=== PATIENT | female | born 1930 | race Caucasian/White ===

== ENCOUNTER 2016-09-28 14:51 | Outpatient (CLI) | payer MEDICARE, OTHER | END 2016-09-28 14:52 | disposition home or self-care (01) | DX: Z12.31 Encounter for screening mammogram for malignant neoplasm of breast (principal) ==

== ENCOUNTER 2017-09-25 11:33 | Outpatient (CLI) | payer MEDICARE, OTHER ==
--- NOTE | 2017-09-26 13:17 | Mammography Report ---
DIGITAL SCREENING MAMMOGRAM: 09/25/2017 CLINICAL INDICATION: An 87-year-old with history of late childbearing, history of benign biopsy, family history of breast cancer for screening. COMPARISON: 08/2016, 08/2015, 08/2007, 08/2006. TECHNIQUE: Routine CC and MLO projections were obtained of the breasts. FINDINGS: The breasts demonstrate scattered fibroglandular densities bilaterally. Coarse, typically benign calcifications are present. Postoperative changes in the left breast are stable. No suspicious masses, clustered microcalcifications, or regions of architectural distortion are identified. IMPRESSION: BENIGN FINDINGS. RECOMMENDATION: Routine annual screening unless otherwise clinically indicated. BIRADS CATEGORY 2 - BENIGN FINDINGS. STANDARD QUALIFYING STATEMENTS: 1. This examination was reviewed with the aid of Computer-Aided Detection (CAD). 2. A negative or benign imaging report should not delay biopsy if clinically suspicious findings are present. Consider surgical consultation if warranted. More than 5% of cancers are not identified by imaging. 3. Dense breasts may obscure an underlying neoplasm. TD: 09/26/2017 13:17
== END 2017-09-25 11:34 | disposition home or self-care (01) ==
LOC: DI.S 11:33
PROVIDERS: ATTEND Internal Medicine
DX: Z12.31 Encounter for screening mammogram for malignant neoplasm of breast (principal)
CPT/HCPCS: 77067

== ENCOUNTER 2018-06-19 01:51 | Outpatient (CLI) | payer MEDICARE, OTHER | END 2018-06-19 01:52 | disposition critical access hospital (66) | LOC: EMS 01:51 | PROVIDERS: ATTEND Surgery | DX: R42 Dizziness and giddiness (principal); R11.2 Nausea with vomiting, unspecified; R47.81 Slurred speech; R29.810 Facial weakness | CPT/HCPCS: A0425; A0429 ==

== ENCOUNTER 2018-06-19 02:14 | Inpatient (IN) | payer MEDICARE, OTHER ==
[2018-06-19] MEDS ORDERED: ONDANSETRON 4 MG/2 ML VIAL ONE (02:27)
[2018-06-19] MEDS ORDERED: ONDANSETRON 4 MG/2 ML VIAL IVP STA (02:27)
--- NOTE | 2018-06-19 02:29 | ED Physician Documentation ---
PD HPI FOCAL NEURO - Stated complaint Stated Complaint: RIGHT SIDE FACIAL DROOP, RLE WEAKNESS - Chief complaint Chief Complaint: Neuro - History obtained from History obtained from: Patient, EMS - History of Present Illness Timing - onset: Unknown Timing - details: Abrupt onset Time of symptom onset unknown: Time of onset unknown Severity of deficit: Severe Weakness: Face, Leg, Right Numbness: No: Face, Arm, Hand, Leg, Foot, Right, Left Associated symptoms: Nausea / vomiting, Other (double vision). No: Headache Contributing factors: negative: Anticoagulated Baseline status: positive: A&OX3, ambulatory, indep Similar symptoms before: Has not had sx before Recently seen: Not recently seen - Additional information Additional information: 88-year-old female went to bed at about 9:30 PM after having her usual 4-5 whiskey drinks. She was awoken in the middle of the night she is uncertain exactly why but she noticed at that time that she was nauseous and dizzy. She noticed that she was having double vision and called 911 when medics arrived they found to have a right facial droop and transported to the hospital. The patient states that she was in her usual health has not felt ill and does not feel weakness on one side or the other. She denies any numbness. Review of Systems Constitutional: denies: Fever Eyes: reports: Other (double vision) Ears: denies: Ear pain Nose: denies: Rhinorrhea / runny nose, Congestion Throat: denies: Sore throat Cardiac: denies: Chest pain / pressure, Palpitations Respiratory: denies: Dyspnea, Cough GI: reports: Nausea, Vomiting. denies: Abdominal Pain : denies: Dysuria, Frequency Skin: denies: Rash Musculoskeletal: denies: Neck pain, Back pain, Extremity pain Neurologic: reports: Focal weakness, Difficulty speaking. denies: Generalized weakness, Numbness, Head injury, LOC PD PAST MEDICAL HISTORY - Past Surgical History Past Surgical History: Yes General: Bowel surgery /[employer]: Oophrectomy - Present Medications Home Medications: Ambulatory Orders Medication Instructions Recorded Confirmed cephALEXin [Keflex] 500 mg PO Q6H #19 capsule 03/01/14 No Known Home Medications 06/19/18 06/19/18 - Allergies Allergies/Adverse Reactions: Allergies Allergy/AdvReac Type Severity Reaction Status Date / Time No Known Drug Allergies Allergy Unverified 06/19/18 02:07 - Social History Does the pt smoke?: No Smoking Status: Never smoker Does the pt drink ETOH?: Yes Does the pt have substance abuse?: No - Immunizations Immunizations are current?: Yes PD ED PE NORMAL - Vitals Vital signs reviewed: Yes (hypertensive mild ) - General General: Well developed/nourished, Other (prefers to keep eyes closed ) - HEENT HEENT: Atraumatic, PERRL, EOMI, Moist mucous membranes, Other (There are 3 beats of nystagmus to the left and 4 to the right ) - Neck Neck: Supple, no meningeal sign, No bony TTP - Cardiac Cardiac: RRR, Other (2/6 holosystolic murmer at LSB high pitched consistent with aortic stenosis.) - Respiratory Respiratory: No respiratory distress, Clear bilaterally - Abdomen Abdomen: Soft, Non tender - Back Back: No CVA TTP, No spinal TTP - Derm Derm: Normal color, Warm and dry, No rash - Extremities Extremities: No deformity, No edema - Neuro Neuro: Alert and oriented X 3, No sensory deficit, Normal speech, Other (There is marked facial asymetry with a right facial droop. The forehead is densely involved. There is nystagmus bilaterally ) Eye Opening: To Voice Motor: Obeys Commands Verbal: Oriented GCS Score: 14 - Psych Psych: Normal mood, Normal affect NIHSS - Time Time: 02:20 - Level of Consciousness Level of consciousness: (0) Alert, Keenly responsive LOC Questions: (0) Answers both Q's correct LOC Commands: (0) Performs both correctly - Gaze Best Gaze: (1) Partial gaze palsy - Visual Visual: (0) No loss - Facial Palsy Facial Palsy: (3) Complete paralysis - Motor Arms (both separate) Motor Arm (right): (0) No drift Motor Arm (left): (0) No drift - Motor Legs (both separate) Motor Leg (right): (0) No drift Motor Leg (left): (0) No drift - Limb Ataxia Limb Ataxia: (0) Absent - Sensory Sensory: (0) Normal - Best Language Best Language: (0) No aphasia - Dysarthria Dysarthria: (0) Normal - Extinction and Inattention (formally neg Extinction and inattention: (0) No abnormality - Total Score/Results Total Score/Result: 4 Results - Vitals Vitals: Vital Signs - 24 hr 06/19/18 06/19/18 06/19/18 02:13 02:27 02:41 Temperature 36.5 C Heart Rate 81 88 81 Respiratory 20 22 17 Rate Blood Pressure 159/74 H 180/95 H 137/69 H O2 Saturation 94 92 85 L 06/19/18 06/19/18 06/19/18 02:55 03:22 04:14 Temperature Heart Rate 78 77 Respiratory 20 16 Rate Blood Pressure 127/69 143/74 H O2 Saturation 92 96 94 06/19/18 06/19/18 04:43 05:26 Temperature Heart Rate 81 84 Respiratory 17 18 Rate Blood Pressure 157/70 H 145/71 H O2 Saturation 92 94 Oxygen O2 Source Nasal cannula Oxygen Flow Rate 2 - EKG (time done) 0238 Rate: Rate (enter#) (82) Rhythm: NSR Ischemia: Normal ST segments Compare to prior EKG: Old EKG unavailable Computer interpretation: Agree with computer - Labs Labs: Laboratory Tests 06/19/18 06/19/18 06/19/18 02:20 02:20 02:20 WBC 4.5 L RBC 3.87 L Hgb 12.5 Hct 36.1 L MCV 93.4 MCH 32.3 H MCHC 34.6 RDW 13.7 Plt Count 189 MPV 8.3 Neut # (Auto) 2.6 Lymph # (Auto) 1.5 [place]re # (Auto) 0.3 Eos # (Auto) 0.1 Baso # (Auto) 0.0 Absolute Nucleated RBC 0.00 Nucleated RBC % 0.1 Sodium 139 Potassium 3.7 Chloride 103 Carbon Dioxide 25 Anion Gap 11.0 BUN 18 Creatinine 0.8 Estimated GFR (MDRD) 68 L Glucose 144 H Calcium 8.8 Total Bilirubin 0.6 AST 22 ALT 16 Alkaline Phosphatase 79 Troponin I < 0.04 Total Protein 6.8 Albumin 3.7 Globulin 3.1 Albumin/Globulin Ratio 1.2 Lipase 119 H Urine Color Urine Clarity Urine pH Ur Specific Evans Urine Protein Urine Glucose (UA) Urine Ketones Urine Occult Blood Urine Nitrite Urine Bilirubin Urine Urobilinogen Ur Leukocyte Esterase Ur Microscopic Review Urine Culture Comments Ethyl Alcohol 06/19/18 06/19/18 02:20 03:31 WBC RBC Hgb Hct MCV MCH MCHC RDW Plt Count MPV Neut # (Auto) Lymph # (Auto) [place] # (Auto) Eos # (Auto) Baso # (Auto) Absolute Nucleated RBC Nucleated RBC % Sodium Potassium Chloride Carbon Dioxide Anion Gap BUN Creatinine Estimated GFR (MDRD) Glucose Calcium Total Bilirubin AST ALT Alkaline Phosphatase Troponin I Total Protein Albumin Globulin Albumin/Globulin Ratio Lipase Urine Color YELLOW Urine Clarity CLEAR Urine pH 6.5 Ur Specific Evans 1.010 Urine Protein NEGATIVE Urine Glucose (UA) NEGATIVE Urine Ketones NEGATIVE Urine Occult Blood NEGATIVE Urine Nitrite NEGATIVE Urine Bilirubin NEGATIVE Urine Urobilinogen 0.2 (NORMAL) Ur Leukocyte Esterase NEGATIVE Ur Microscopic Review NOT INDICATED Urine Culture Comments NOT INDICATED Ethyl Alcohol 63.0 - Rads (name of study) CT head without Radiology: Prelim report reviewed (Impression: Generalized age-related cortical atrophic changes without evidence of acute intracranial abnormality.), EMP read indepedently, See rad report Procedures - IVC sono (time) 0302 Bedside IVC sono: IVC measures (cm) (1.01), IVC collapsed c insp (cm) (complete), Dehydration (est 1 liter deficit) PD MEDICAL DECISION MAKING - ED course Complexity details: reviewed old records, reviewed results, re-evaluated patient, considered differential, d/w patient ED course: 88-year-old female presents to the emergency department this morning with acute vertical diplopia and ataxia. She has had some vomiting associated with this and has developed a right facial droop. Right facial droop does appear to be a Garcia's palsy and does not fit with the diagnosis of Wernicke's encephalopathy. I suspect her vertical diplopia and ataxia are a result of Wernicke's encephalopathy. Here in the emerge department she is administered a banana bag intravenously as well as dexamethasone and meclizine. She has some improvement in her general affect but continues to have diplopia. She will require intravenous thiamine for 2-3 days and her hospitalist is consulted in the case and graciously agrees to admit the patient to the hospital. Departure - Departure Disposition: 66 [facility] DC/Xfer Clinical Impression: Wernicke encephalopathy, Right-sided Garcia's palsy Condition: Stable
[2018-06-19 02:36] LABS: BASOPHILS % (AUTO) 0.7 %; EOSINOPHILS # (AUTO) 0.1 10^3/uL (0.0-0.7); HGB - HEMOGLOBIN 12.5 g/dL (12.0-16.0); LYMPHOCYTES # (AUTO) 1.5 10^3/uL (1.5-3.5); LYMPHOCYTES % (AUTO) 32.9 %; MEAN CORPUSCULAR HEMOGLOBIN 32.3 pg (27.0-31.0); MEAN CORPUSCULAR HGB CONC 34.6 g/dL (32.0-36.0); MEAN CORPUSCULAR VOLUME 93.4 fL (81.0-99.0); MEAN PLATELET VOLUME 8.3 fL (7.9-10.8); MONOCYTES # (AUTO) 0.3 10^3/uL (0.0-1.0); NEUTROPHILS # (AUTO) 2.6 10^3/uL (1.5-6.6); NEUTROPHILS % (AUTO) 57.4 %; PLT - PLATELET COUNT 189 10^3/uL (130-450); RED BLOOD COUNT 3.87 10^6/uL (4.20-5.40); RED CELL DISTRIBUTION WIDTH 13.7 % (12.0-15.0); WHITE BLOOD COUNT 4.5 x10^3/uL (4.8-10.8)
[2018-06-19 02:49] LABS: CREATININE 0.8 mg/dL (0.4-1.0)
[2018-06-19 02:50] LABS: ALBUMIN 3.7 g/dL (3.2-5.5); ALBUMIN/GLOBULIN RATIO 1.2 (1.0-2.2); BILIRUBIN,TOTAL 0.6 mg/dL (0.2-1.0); CALCIUM 8.8 mg/dL (8.5-10.3); TOTAL PROTEIN 6.8 g/dL (6.7-8.2)
--- NOTE | 2018-06-19 02:52 | CT Report ---
Reason: right facial droop, vomiting double vision Procedure Date: 06/19/2018 Accession Number: [id number] / [id number] Procedure: CT - Head W/O Stroke Protocol CPT Code: FULL RESULT: EXAM: CT HEAD EXAM DATE: 06/19/2018. CLINICAL HISTORY: Right facial droop, vomiting double vision. COMPARISON: Brain MRI 05/02/2007. TECHNIQUE: Multiaxial CT images were obtained from the foramen magnum to the vertex. Reformats: Sagittal and coronal. IV contrast: None. In accordance with CT protocol optimization, one or more of the following dose reduction techniques were utilized for this exam: automated exposure control, adjustment of mA and/or KV based on patient size, or use of iterative reconstructive technique. FINDINGS: Parenchyma: No intraparenchymal hemorrhage. No evidence of mass, midline shift, or CT findings of acute infarction. Juan-white differentiation is distinct. Diffuse chronic microangiopathic white matter changes are evident. Extraaxial Spaces: Normal for age. No subdural or epidural collections identified. Ventricles: The ventricles and cortical sulci are enlarged, consistent with age-related tissue loss. Sinuses and orbits: Imaged paranasal sinuses, orbits, and mastoids show no significant abnormality. Bones: No evidence of fracture or calvarial defect. Other: None. IMPRESSION: Generalized age-related cortical atrophic changes without evidence of acute intracranial abnormality. RADIA The above findings were discussed with Dr. Obrien by Dr. Vidal Burr at 02:50 hrs on 06/19/18.
[2018-06-19] MEDS ORDERED: MECLIZINE 12.5 MG TABLET PO STA (03:05)
[2018-06-19] MEDS ORDERED: DEXAMETHASONE 10 MG/ML VIAL IVP STA (03:06)
[2018-06-19 03:38] LABS: BILIRUBIN,URINE NEGATIVE (NEGATIVE); GLUCOSE, URINE (UA) NEGATIVE (NEGATIVE); KETONES,URINE (UA) NEGATIVE (NEGATIVE); LEUKOCYTE ESTERASE, URINE NEGATIVE (NEGATIVE); NITRITE,URINE NEGATIVE (NEGATIVE); OCCULT BLOOD,URINE NEGATIVE (NEGATIVE); PH,URINE 6.5 PH (5.0-7.5); PROTEIN,URINE NEGATIVE (NEGATIVE); UROBILINOGEN,URINE 0.2 (NORMAL) E.U./dL (NORMAL)
[2018-06-19 03:42] LABS: CLARITY,URINE CLEAR (CLEAR)
[2018-06-19] MEDS ORDERED: MAGNESIUM SULFATE 1 GM/2 ML VIAL ONE (03:45)
[2018-06-19] MEDS ORDERED: THIAMINE 100 MG/1 ML 2 ML MDV ONE (03:45)
[2018-06-19] MEDS ORDERED: MULTIVITAMIN 10 ML, FOLIC ACID INJ 1 MG, THIAMINE INJ 100 MG, MAGNESIUM SULFATE 2 GM in... IV SCH ×10 (04:00→09:00)
[2018-06-19] MEDS ORDERED: SODIUM CHLORIDE FLUSH 0.9% 10 ML SYRINGE IVP PRN (06:59)
--- NOTE | 2018-06-19 07:55 | HISTORY & PHYSICAL EXAMINATION ---
Chief Complaint - Chief Complaint Chief Complaint: Dizziness, facial droop History of Present Illness - Admitted From Admitted From:: Emergency department - History Obtained From Records Reviewed: Yes History obtained from: Patient Exam Limitations: Patient has a right facial droop and is unable to ambulate due to severe ve - History of Present Illness HPI Comment/Other: Patient is a very pleasant 88-year-old female with a past medical history of hypertension not on any medications, diverticulitis and history of vasectomy for a benign cyst, partial colectomy for a benign polyp and salpingo-oophorectomy who presented to the emergency department with a chief complaint of dizziness and facial droop. The patient states that she was in her normal state of health yesterday and was at her neighbor's home celebrating his birthday. She states that she did have 5 cocktails last night with whiskey but she states that this is her norm. She states that she went to bed around 9 PM yesterday and felt fine. She states that at 2 AM all of a sudden she woke from her sleep and felt as though the room was spinning around her. She states that she felt extremely nauseous and had multiple episodes of emesis. She states that she tried to lie in her bed for about 4-5 minutes to let things settle down and then tried to get up. She states that she could not get up. She states that she had double vision. Then noticed that she had a right facial droop. She called 911 and paramedics arrived at the scene. The patient otherwise denies any fevers, chills, ringing in her ear, congestion, recent illness, dysuria, abdominal pain, diarrhea, changes in her appetite, weight loss or night sweats. The patient does state that she has decreased sensation on the left side of her mouth when she was trying to eat. On presentation to the emergency department the patient was afebrile with a normal heart rate but was hypertensive with blood pressure of 180/95 and not in any respiratory distress. The patient underwent routine lab work which revealed mildly elevated glucose of 144 otherwise she had a negative troponin and normal electrolytes. The patient's UA was negative her blood alcohol level was 63. The patient did not have a leukocytosis. The patient was found to have a right facial droop and horizontal and vertical nystagmus on her examination. The patient did undergo a CT of her head which revealed generalized age-related cortical atrophic changes without evidence of acute intracranial abnormality. The patient was placed in the observation unit for further neurologic workup for a presumed stroke. History - Past Medical History Cardiovascular: reports: Hypertension Respiratory: reports: None Neuro: reports: None Endocrine/Autoimmune: reports: None GI: reports: Colon polyps FOWL BLOOD TESTER: reports: Ovarian cysts : reports: None HEENT: reports: None Psych: reports: None Musculoskeletal: reports: None Derm: reports: None - Past Surgical History General: reports: Bowel surgery /FOWL BLOOD TESTER: reports: Oophrectomy - Family & Social History Family History: Sister: Cancer (Breast cancer), CVA/TIA, Brother: CAD Living arrangement: At home Living Situation: Alone Social History Notes: The patient lives at home in [place]. She is completely independent and lives alone. She has 4 children 1 of her sons lives on [facility] and works as a physical therapist. She is x2. She has never smoked, she does drink 4-5 cocktails of whiskey a night. She denies any illicit drug use. - POLST Patient has POLST: No POLST Status: DNR Meds/Allgy - Home Medications Home Medications: Ambulatory Orders Medication Instructions Recorded Confirmed No Known Home Medications 06/19/18 06/19/18 - Allergies Allergies/Adverse Reactions: Allergies Allergy/AdvReac Type Severity Reaction Status Date / Time No Known Drug Allergies Allergy Unverified 06/19/18 02:07 Review of Systems - Other Findings Other Findings: A comprehensive review of systems was performed the pertinent positives and negatives are stated above in the HPI and the remainder of the review of systems is negative. Prior Level of Functionality: Prior to hospitalization the patient is completely independent with all her activities of daily living. She is still very active and social. Exam - Vital Signs Vital Signs: Vital Signs x48h Temp Pulse Resp BP Pulse Ox 06/19/18 06:32 87 17 146/76 H 92 06/19/18 05:56 36.4 C L 87 22 148/75 H 93 06/19/18 05:26 84 18 145/71 H 94 06/19/18 04:43 81 17 157/70 H 92 06/19/18 04:14 77 16 143/74 H 94 06/19/18 03:22 78 20 127/69 96 06/19/18 02:55 92 06/19/18 02:41 81 17 137/69 H 85 L 06/19/18 02:27 88 22 180/95 H 92 06/19/18 02:13 36.5 C 81 20 159/74 H 94 - Physical Exam General Appearance: positive: Alert, Moderate distress (COvering her eyes secondary to vertigo and diplopia) Eyes Bilateral: positive: Normal inspection, PERRL, EOMI, No lid inflammation, Conjunctivae nml, No scleral icterus, Other (Vertical and horizontal nystagmus) ENT: positive: ENT inspection nml, Pharynx nml, No signs of dehydration. negative: Purulent nasal drainage, Pharyngeal erythema, Oral lesions Neck: positive: Nml inspection, Thyroid nml, No JVD, Trachea midline. negative: Thyromegaly, Lymphadenopathy (R), Lymphadenopathy (L), Stiff neck, Carotid bruit, Tracheal deviation Respiratory: positive: Chest non-tender, No respiratory distress, Breath sounds nml. negative: Wheezes, Rales, Rhonchi Cardiovascular: positive: Regular rate & rhythm, No gallop, Systolic murmur Peripheral Pulses: positive: 2+ Abdomen: positive: Non-tender, No organomegaly, Nml bowel sounds, No distention. negative: Guarding, Rebound, Hepatomegaly Back: positive: Nml inspection. negative: CVA tenderness (R), CVA tenderness (L) Skin: positive: Color nml, No rash, Warm. negative: Cyanosis, Diaphoresis, Pallor Extremities: positive: Non-tender, Full ROM, Nml appearance, No pedal edema Neurologic/Psychiatric: positive: Oriented x3, Sensory loss (Left face), Facial droop (Right), Other (Vertical and horizontal nystagmus. Broad based gate. Vertigo. Diplopia.) Conclusion/Plan - Problem List (1) CVA (cerebral vascular accident) Conclusion/Plan: The patient presented with low, diplopia, right facial droop and decreased sensation in the left side of her face. She had no other focal neurologic deficits. Patient's MRI revealed acute infarct in the right posterolateral pontomedullary junction. CT angiogram of the head and neck does not show any large thrombus or severe stenosis. Therefore there is no need for any acute intervention. 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 The patient does have a systolic murmur. She does not have any history of syncope, shortness of breath or congestive heart failure. Currently she seems to have minimal symptoms from her aortic stenosis is unlikely that her neurologic symptoms are related to her aortic stenosis. Plan: We will make sure the patient is adequately hydrated and does not become hypotensive. Patient will need outpatient workup for her aortic stenosis will await final reading of the echocardiogram. (3) Hypertension Conclusion/Plan: Patient has a history of hypertension but is not on any antihypertensive medications. The patient's blood pressure was elevated on presentation to the emergency department. For now we will allow for permissive hypertension secondary to her having had a acute infarct. Qualifiers: Hypertension type: essential hypertension Qualified Code(s): I10 - Essential (primary) hypertension (4) Hyperglycemia Conclusion/Plan: On presentation the patient's blood glucose is elevated at 144. She does not henderson ve a history of diabetes. We will check a hemoglobin A1c. We will monitor the blood glucose daily. - Lab Results Lab results reviewed: Yes Fish Bones: 06/19/18 02:20 06/19/18 02:20 Other Lab Results: Laboratory Results WBC 4.5 x10^3/uL (4.8-10.8) L 06/19/18 02:20 RBC 3.87 10^6/uL (4.20-5.40) L 06/19/18 02:20 Hgb 12.5 g/dL (12.0-16.0) 06/19/18 02:20 Hct 36.1 % (37.0-47.0) L 06/19/18 02:20 MCV 93.4 fL (81.0-99.0) 06/19/18 02:20 MCH 32.3 pg (27.0-31.0) H 06/19/18 02:20 MCHC 34.6 g/dL (32.0-36.0) 06/19/18 02:20 RDW 13.7 % (12.0-15.0) 06/19/18 02:20 Plt Count 189 10^3/uL (130-450) 06/19/18 02:20 MPV 8.3 fL (7.9-10.8) 06/19/18 02:20 Neut # (Auto) 2.6 10^3/uL (1.5-6.6) 06/19/18 02:20 Lymph # (Auto) 1.5 10^3/uL (1.5-3.5) 06/19/18 02:20 Titus # (Auto) 0.3 10^3/uL (0.0-1.0) 06/19/18 02:20 Eos # (Auto) 0.1 10^3/uL (0.0-0.7) 06/19/18 02:20 Baso # (Auto) 0.0 10^3/uL (0.0-0.1) 06/19/18 02:20 Absolute Nucleated RBC 0.00 x10^3/uL 06/19/18 02:20 Nucleated RBC % 0.1 /100WBC 06/19/18 02:20 Sodium 139 mmol/L (135-145) 06/19/18 02:20 Potassium 3.7 mmol/L (3.5-5.0) 06/19/18 02:20 Chloride 103 mmol/L (101-111) 06/19/18 02:20 Carbon Dioxide 25 mmol/L (21-32) 06/19/18 02:20 Anion Gap 11.0 (6-13) 06/19/18 02:20 BUN 18 mg/dL (6-20) 06/19/18 02:20 Creatinine 0.8 mg/dL (0.4-1.0) 06/19/18 02:20 Estimated GFR (MDRD) 68 (>89) L 06/19/18 02:20 Glucose 144 mg/dL (70-100) H 06/19/18 02:20 Calcium 8.8 mg/dL (8.5-10.3) 06/19/18 02:20 Total Bilirubin 0.6 mg/dL (0.2-1.0) 06/19/18 02:20 AST 22 IU/L (10-42) 06/19/18 02:20 ALT 16 IU/L (10-60) 06/19/18 02:20 Alkaline Phosphatase 79 IU/L (42-121) 06/19/18 02:20 Troponin I < 0.04 ng/mL (<0.49) 06/19/18 02:20 Total Protein 6.8 g/dL (6.7-8.2) 06/19/18 02:20 Albumin 3.7 g/dL (3.2-5.5) 06/19/18 02:20 Globulin 3.1 g/dL (2.1-4.2) 06/19/18 02:20 Albumin/Globulin Ratio 1.2 (1.0-2.2) 06/19/18 02:20 Lipase 119 U/L (22-51) H 06/19/18 02:20 Urine Color YELLOW 06/19/18 03:31 Urine Clarity CLEAR (CLEAR) 06/19/18 03:31 Urine pH 6.5 PH (5.0-7.5) 06/19/18 03:31 Ur Specific [place] 1.010 (1.002-1.030) 06/19/18 03:31 Urine Protein NEGATIVE mg/dL (NEGATIVE) 06/19/18 03:31 Urine Glucose (UA) NEGATIVE mg/dL (NEGATIVE) 06/19/18 03:31 Urine Ketones NEGATIVE mg/dL (NEGATIVE) 06/19/18 03:31 Urine Occult Blood NEGATIVE (NEGATIVE) 06/19/18 03:31 Urine Nitrite NEGATIVE (NEGATIVE) 06/19/18 03:31 Urine Bilirubin NEGATIVE (NEGATIVE) 06/19/18 03:31 Urine Urobilinogen 0.2 (NORMAL) E.U./dL (NORMAL) 06/19/18 03:31 Ur Leukocyte Esterase NEGATIVE (NEGATIVE) 06/19/18 03:31 Ur Microscopic Review NOT INDICATED 06/19/18 03:31 Urine Culture Comments NOT INDICATED 06/19/18 03:31 Ethyl Alcohol 63.0 mg/dL 06/19/18 02:20 - Diagnostic Imaging Results Diagnostic Imaging Results: positive: Final report reviewed Diagnostic Imaging Results Comments: CT head Impression: Generalized age-related cortical atrophic changes without evidence of acute intracranial abnormality MRI brain Impression: 1. Acute infarct in the right posterolateral pontomedullary junction. 2. Moderate white matter T2/FLAIR bright signal seen in the cerebral hemispheres bilaterally and right periventricular cerebellum. This is nonspecific. This can be seen secondary to small vessel ischemic change. 3. Several scattered punctuate foci of petechial microhemorrhage noted in the deep nuclear region. This may be secondary to hypertension. No parenchymal hematoma. CTA head and neck Impression: 1. Mild scattered atherosclerotic change involving extracranial cerebral circulation in the thoracic inlet and neck. 2. Mild atherosclerotic calcification is seen in the CCA bifurcation bilaterally. No significant stenosis. Bilateral carotid arteries are patent. 3. Bilateral vertebral arteries are patent. Moderate stenosis secondary to extrinsic compression from degenerative change of the cervical spine is seen in the proximal V2 segment of the right vertebral artery. Mild atherosclerotic calcification is seen in the V3 segment of the left vertebral artery. No significant stenosis. 4. Anterior circulation is patent. Moderate vascular calcification is seen involving cavernous and proximal supracavernous ICA. No significant stenosis. 5. Right vertebral artery is patent. 6. The left vertebral artery demonstrates moderate to severe stenosis in the proximal V4 segment. Patent distal to this. The left Pic[place] is dominant arising from the mid V4 segment. 7. The basilar artery and bifurcation is patent. Echocardiogram Impression: Mild concentric left ventricular hypertrophy. Overall left ventricular systolic function is normal with an ejection fraction of 60-65%. Diastolic function is indeterminate. No regional wall motion abnormalities are seen. Moderate right ventricular enlargement. Severe increase in left atrial volume index. The right atrial size is normal. The aortic valve is trileaflet. The aortic valve leaflets are severely calcified. Severe aortic stenosis with peak/mean pressure gradient of 76 mm / 54 mmHg, the aortic valve area by continuity equation is 0.44 cm. There is tra cemild aortic regurgitation. There is thickening of the mitral valve leaflets. No mitral stenosis noted. Moderate mitral annular calcification. There is mild to moderate mitral regurgitation. The tricuspid valve appears structurally normal. No tricuspid stenosis noted. Moderate tricuspid regurgitation. Severely abnormal right heart pressures. The right ventricular systolic pressure at rest is 70 mmHg. No mass or thrombus identified. - EKG Results EKG Interpreted Independently: Yes EKG Findings: Sinus rhythm. Core Measures - Anticipated LOS I expect patient to be DC'd or transferred within 96 hours.: Yes - DVT/VTE - Prophylaxis VTE/DVT Device ordered at admit?: Yes
[2018-06-19] MEDS ORDERED: IOVERSOL 320 100 ML VIAL IVP ONE ×2 (07:56→08:27)
[2018-06-19] MEDS ORDERED: MULTIVITAMIN 10 ML, FOLIC ACID INJ 1 MG, THIAMINE INJ 100 MG, MAGNESIUM SULFATE 2 GM in... IV STA ×5 (08:23)
[2018-06-19] MEDS ORDERED: PANTOPRAZOLE 40 MG VIAL IVP SCH (09:00)
[2018-06-19] MEDS ORDERED: D5NS W/20 MEQ KCL 1,000 ML IV SCH (09:00)
[2018-06-19] MEDS ORDERED: predniSONE 20 MG TABLET PO SCH (10:00)
[2018-06-19] MEDS ORDERED: valACYclovir 500 MG TABLET PO SCH (10:00)
--- NOTE | 2018-06-19 10:05 | CT Report ---
Reason: Facial droop, ataxia Procedure Date: 06/19/2018 Accession Number: [id number] / [id number] Procedure: CT - Head Angio CPT Code: FULL RESULT: EXAM: CT ANGIOGRAM HEAD AND NECK. CT SCAN HEAD WITH CONTRAST. EXAM DATE:06/19/2018 08:25 AM. CLINICAL HISTORY:Facial droop, ataxia. Clinical history from prior study includes: Right facial droop, vomiting, double vision. COMPARISON:CT scan of the head without contrast 06/19/2018 at 0221 hours. TECHNIQUE: Routine axial helical CTA imaging was performed from the aortic arch through the [place] of [place]. Routine axial CT imaging of the head was performed following contrast administration. Reconstructions: Routine multiplanar 3D MIP reconstructions. IV contrast: OPTI 320 80 mL. NASCET Criteria are used for stenosis measurements. In accordance with CT protocol optimization, one or more of the following dose reduction techniques were utilized for this exam: automated exposure control, adjustment of mA and/or KV based on patient size, or use of iterative reconstructive technique. FINDINGS: CT SCAN HEAD POSTCONTRAST: Parenchyma: No intraparenchymal hemorrhage. No evidence of mass, midline shift, or CT findings of acute infarction. Juan-white differentiation is distinct. Moderate patchy white matter hypodensity is noted throughout the cerebral hemispheres. No abnormal enhancement. Extraaxial Spaces: Normal for age. No subdural or epidural collections identified. Ventricles: Age-related prominence to the ventricular system is seen. No hydrocephalus. Sinuses and Orbits: Imaged paranasal sinuses, orbits, and mastoids show no significant abnormality. Bones: No evidence of fracture or calvarial defect. Moderate degenerative change is seen at the left TMJ. Hypertrophy of the mandibular condyle is evident. Other: Moderate vascular calcification is seen involving intracranial ICA. Mild vascular calcification is seen in the proximal intracranial vertebral arteries. CT ANGIOGRAM EXTRACRANIAL CIRCULATION: Mild tortuosity with moderate atherosclerotic calcification is seen in the aortic arch and great vessels off the arch. Normal three-vessel branching is evident. Great vessels are patent and unremarkable. Right Carotid: The common carotid, internal carotid, and external carotid arteries are widely patent. No dissection. Mild atherosclerotic calcification is seen at the CCA bifurcation and proximal ICA. No significant stenosis. Left Carotid: The common carotid, internal carotid, and external carotid arteries are widely patent. No dissection. Mild atherosclerotic calcification is seen at the CCA bifurcation and proximal ICA. No significant stenosis. Vertebrals: The vertebral arteries are codominant. The vertebral arteries are patent. Right vertebral artery: Extrinsic compression secondary to cervical spondylosis is seen in the proximal V2 segment at the C5-C6 level. Moderate, 50%, stenosis is seen. No dissection. Left vertebral artery: Mild atherosclerotic calcification is seen in the V3 segment. No significant stenosis. No dissection. CT ANGIOGRAM INTRACRANIAL CIRCULATION: Anterior circulation: Moderate atherosclerotic calcification is seen in the cavernous and proximal supracavernous ICA. No significant stenosis. No aneurysm. Bilateral VERA and MCA are patent and unremarkable. Posterior circulation: Mild atherosclerotic calcification is seen in the proximal V4 segment of the right vertebral artery. No significant stenosis. Moderate atherosclerotic calcification is seen in the proximal V4 segment of the left vertebral artery. Focal severe, 65-70%, stenosis is seen. The left PICA is dominant arising from the mid V4 segment. Minimal luminal irregularity is seen in the proximal basilar artery without significant stenosis. There are 2 right-sided AICAs present which are patent and unremarkable. Bilateral superior cerebellar arteries and POLITICAL RESEARCH SCIENTIST are patent and unremarkable. No significant stenosis. No aneurysm. The dural venous sinuses are patent. The right transverse sinus and jugular bulb are dominant. Other: Coarsened interstitial prominence is noted throughout the visualized upper lung zones. No consolidation. The visualized muscle and fascial planes of the neck are unremarkable. Mild kyphosis of the cervical spine is noted. Scattered cervical spondylosis is noted. C2-C3: Moderate right-sided degenerative facet change. Bilateral facet fusion. C3-C4: Moderate left-sided hypertrophic degenerative facet change. Mild left-sided degenerative uncovertebral change. C4-C5: Moderate bilateral degenerative facet change. Mild spondylolisthesis. C5-C6: Moderate degenerative disk and uncovertebral change. Right foraminal stenosis. C6-C7: Mild degenerative disk and uncovertebral change. IMPRESSION: CT SCAN HEAD POSTCONTRAST: 1. No acute intracranial abnormality. No abnormal enhancement. 2. Moderate white matter hypodensity is seen throughout the cerebral hemispheres. This is nonspecific. This can be seen secondary to small vessel ischemic change. CT ANGIOGRAM NECK: 1. Mild scattered atherosclerotic change involving extracranial cerebral circulation in the thoracic inlet and neck. 2. Mild atherosclerotic calcification is seen at the CCA bifurcation bilaterally. No significant stenosis. Bilateral carotid arteries are patent. 3. Bilateral vertebral arteries are patent. -Moderate stenosis secondary to extrinsic compression from degenerative change of the cervical spine is seen in the proximal V2 segment of the right vertebral artery. -Mild atherosclerotic calcification is seen in the V3 segment of the left vertebral artery. No significant stenosis. CT ANGIOGRAM HEAD: 1. Anterior circulation is patent. Moderate vascular calcification is seen involving cavernous and proximal supracavernous ICA. No significant stenosis. 2. The right vertebral artery is patent. 3. The left vertebral artery demonstrates moderate to severe stenosis in the proximal V4 segment. Patent distal to this. The left PICA is dominant arising from the mid V4 segment. 4. The basilar artery and bifurcation is patent. [facility]
[2018-06-19] MEDS: SODIUM CHLORIDE FLUSH 0.9% 10 ML SYRINGE IVP SCH ×2 (10:53→18:13)
[2018-06-19] MEDS: POLYETHYLENE GLYCOL 3350 17 GM PACKET PO SCH (10:54)
[2018-06-19] MEDS: MECLIZINE 12.5 MG TABLET PO PRN ×2 (10:54→18:13)
--- NOTE | 2018-06-19 11:01 | MRI Report ---
Reason: Facial droop, ataxia Procedure Date: 06/19/2018 Accession Number: [id number] / [id number] Procedure: MRI - Brain W/O CPT Code: FULL RESULT: EXAM: MRI BRAIN WITHOUT CONTRAST EXAM DATE: 06/19/2018 10:03 AM. CLINICAL HISTORY: Facial droop, ataxia. COMPARISON: HEAD W/O STROKE PROTOCOL 06/19/2018 2:21 AM. HEAD ANGIO 06/19/2018 8:00 AM. TECHNIQUE: Multiplanar, multisequence T1-weighted and fluid-sensitive MR sequences of the brain were performed. Sequences optimized for routine evaluation. Other: None. IV Contrast: None. FINDINGS: Brain Volume: Age-related atrophy is present. Parenchyma/Dura: An oval 6 mm focus of restricted diffusion is seen in the right posterolateral pontomedullary junction at the inferior floor of the fourth ventricle. No intracranial mass. Moderate confluent periventricular with patchy deep and subcortical white matter T2/FLAIR bright signal is seen in the cerebral hemispheres. Patchy involvement is seen in the right cerebellar periventricular region as well. There are a few punctate foci of petechial microhemorrhage seen in the lateral left putamen and posterior left thalamus. Questionable punctate focus is seen in the superolateral right putamen as well. No parenchymal hematoma. Ventricles/Cisterns: No hydrocephalus. No abnormal extra-axial fluid collection or hemorrhage. Orbits: Symmetric and unremarkable. [place]: The pituitary gland, cavernous sinuses, suprasellar cistern and optic chiasm are unremarkable. IAC: Symmetric and unremarkable. Vasculature: Normal signal flow void is seen in the major arterial structures at the skull base. Sinuses: No acute sinusitis. Mild mucosal thickening is seen inferiorly in the maxillary antra. Mucous retention cyst is seen in the posterior left maxillary antrum. Bones: No focal pathologic appearing marrow signal changes. Other: None. IMPRESSION: 1. Acute infarct in the right posterolateral pontomedullary junction. 2. Moderate white matter T2/FLAIR bright signal seen in the cerebral hemispheres bilaterally and right periventricular cerebellum. This is nonspecific. This can be seen secondary to small vessel ischemic change. 3. Several scattered punctate foci of petechial microhemorrhage noted in the deep nuclear region. This may be secondary to hypertension. No parenchymal hematoma. Critical result: The findings are discussed with referring physician, Dr. Luther, on 06/19/2018 at 1100 hrs. [facility]
[2018-06-19] MEDS: ASPIRIN 325 MG TABLET PO SCH (12:07)
[2018-06-19] MEDS: FAMOTIDINE 20 MG TABLET PO SCH (20:57)
[2018-06-19] MEDS ORDERED: ATORVASTATIN 40 MG TABLET PO SCH (21:00)
[2018-06-20] MEDS: SODIUM CHLORIDE FLUSH 0.9% 10 ML SYRINGE IVP SCH ×2 (02:37→08:26)
[2018-06-20] MEDS: MECLIZINE 12.5 MG TABLET PO PRN (02:51)
[2018-06-20 05:50] LABS: BASOPHILS % (AUTO) 0.2 %; HGB - HEMOGLOBIN 12.7 g/dL (12.0-16.0); LYMPHOCYTES # (AUTO) 1.1 10^3/uL (1.5-3.5); MEAN CORPUSCULAR HEMOGLOBIN 31.8 pg (27.0-31.0); MEAN CORPUSCULAR VOLUME 96.4 fL (81.0-99.0); MEAN PLATELET VOLUME 8.4 fL (7.9-10.8); MONOCYTES # (AUTO) 0.7 10^3/uL (0.0-1.0); MONOCYTES % (AUTO) 6.5 %; NEUTROPHILS % (AUTO) 83.3 %; PLT - PLATELET COUNT 215 10^3/uL (130-450); WHITE BLOOD COUNT 10.8 x10^3/uL (4.8-10.8)
[2018-06-20 05:55] LABS: INR 1.1 (0.8-1.2); PT - PROTHROMBIN TIME 12.1 secs (9.9-12.6)
[2018-06-20 06:04] LABS: ALBUMIN 3.3 g/dL (3.2-5.5); ALBUMIN/GLOBULIN RATIO 1.1 (1.0-2.2); BILIRUBIN,TOTAL 0.9 mg/dL (0.2-1.0); CALCIUM 8.2 mg/dL (8.5-10.3); CREATININE 0.7 mg/dL (0.4-1.0); TOTAL PROTEIN 6.2 g/dL (6.7-8.2)
[2018-06-20 06:08] LABS: CHOL/HDL RATIO 2.3 (<4.4); CHOLESTEROL 167 mg/dL; HDL CHOLESTEROL 74 mg/dL; MAGNESIUM 2.4 mg/dL (1.7-2.8); PHOSPHORUS 3.5 mg/dL (2.5-4.6)
[2018-06-20 07:02] LABS: LDL CHOLESTEROL,DIRECT 78 mg/dL; LDLD/HDL RATIO 1.1 (<4.4)
[2018-06-20 07:57] LABS: HEMOGLOBIN A1C 0.42 g/dL; HEMOGLOBIN A1C % 5.1 % (4.6-6.2)
[2018-06-20] MEDS: POLYETHYLENE GLYCOL 3350 17 GM PACKET PO SCH (08:26)
[2018-06-20] MEDS: FAMOTIDINE 20 MG TABLET PO SCH (08:26)
[2018-06-20] MEDS: ASPIRIN 325 MG TABLET PO SCH (08:26)
--- NOTE | 2018-06-20 11:26 | Discharge Plan ---
"Discharge Plan for SNF / [facility] - Discharge Plan And Transition Orders Disposition: 02 Transfer Acute Care Hosp Condition: Stable Allergies and Adverse Reactions: Allergies Allergy/AdvReac Type Severity Reaction Status Date / Time No Known Drug Allergies Allergy Unverified 06/19/18 02:07 - SNF / SNF Transition Orders Admit to (Facility): [facility] inpatient stroke rehab Under the care of (Name): Valdo Castaneda MD Discharge Diagnosis: 1. Cerebrovascular accident, acute infarct in the right postero-lateral pontomedullary junction. 2. Severe aortic stenosis 3. New onset atrial fibrillation 4. Hypertension Medicare Certification Statement: I certify that [facility] care is medically necessary on a continuing basis for any of the conditions for which she/he is receiving care during hospitalization. Notify PCP of admission and forward orders to primary provider for signature. Weight on admission and: Monthly Other Notification Orders: Call PCP immediately if patient develops dyspnea, chest pain/tightness or edema. House Bowel Program: Yes Additional Bowel Program Orders: If no BM after 2 days, nurse may give M.O.M. 30ml PO PRN and/or ducolax Supp 1 SD and/or BHANU 250mg P.O., and/or senna 1-2 tabs PO. On day 3 nurse may give repeat above order until residents constipation is resolved. Annual Influenza Vaccine (between Mar 01 and September 28): Yes Two-step PPD per [facility] [id number] or approved exception documents: Yes Treatments & Other Orders: 1. Physical therapy evaluate and treat. 2. Occupational Therapy evaluate and treat. 3. Speech therapy evaluate and treat. 4. Patient was found to have atrial fibrillation on telemetry while she was hospitalized. Due to acute stroke and microhemorrhages on MRI patient was not started on anticoagulation while she was hospitalized. We do recommend starting anticoagulation to help to prevent cardioembolic strokes in the future. Patient needs to follow-up with her primary care physician, neurologist and dough catcher to determine when it is appropriate to start anticoagulation. Oxygen Orders: None Lab Tests or X-ray Orders: None Medication Orders: PLEASE REFER TO THE DISCHARGE MEDICATION LIST. Insulin Orders?: No - Diet Type: No added salt Texture: Puree Liquids: [place] thick May have monthly special meal: Yes - Therapies | Activity Therapy: Evaluation | Treat if indicated: Speech, PT, OT, Swallowing / ST Rehabilitation Potential: Maximize functional status Activity: Activity as Tolerated Weight Bearing: Full Weight Assistance Devices: Walker Follow Up: Patient will need physical therapy, occupational therapy and speech therapy after having had an acute stroke. She was started on aspirin and Lipitor while she was hospitalized and this will be continued. The patient was also found to be in atrial fibrillation but had microhemorrhages on her CT scan therefore anticoagulation was not started during hospitalization. Discussion will need to be had by neurology, cardiology and her primary care doctor as to when to start her on anticoagulation which she does need in the future."
--- NOTE | 2018-06-20 11:43 | DISCHARGE SUMMARY ---
Discharge Summary Admit Date: 06/19/18 Discharge Date: 06/20/18 Discharging Provider: Danial Luther MD Primary Care Provider: Juno Henry MD Code Status: Attempt Resuscitation Condition at Discharge: Stable Discharge Disposition: 02 Transfer Acute Care Hosp Discharge Facility Name: [facility] inpatient stroke rehab - DIAGNOSES Admission Diagnoses: 1. Cerebrovascular accident 2. Severe aortic stenosis 3. Hypertension 4. Hyperglycemia Discharge Diagnoses with Status of Each Condition: 1. Cerebral vascular accident: Guarded 2. Severe aortic stenosis: Guarded 3. Atrial fibrillation: Stable 4. Hypertension: Stable - HPI History of Present Illness: Patient is a very pleasant 88-year-old female with a past medical history of hy pertension not on any medications, diverticulitis and history of vasectomy for a benign cyst, partial colectomy for a benign polyp and salpingo-oophorectomy who presented to the emergency department with a chief complaint of dizziness and facial droop. The patient states that she was in her normal state of health yesterday and was at her neighbor's home celebrating his birthday. She states that she did have 5 cocktails last night with whiskey but she states that this is her norm. She states that she went to bed around 9 PM yesterday and felt fine. She states that at 2 AM all of a sudden she woke from her sleep and felt as though the room was spinning around her. She states that she felt extremely nauseous and had multiple episodes of emesis. She states that she tried to lie in her bed for about 4-5 minutes to let things settle down and then tried to get up. She states that she could not get up. She states that she had double vision. Then noticed that she had a right facial droop. She called 911 and paramedics arrived at the scene. The patient otherwise denies any fevers, c hills, ringing in her ear, congestion, recent illness, dysuria, abdominal pain, diarrhea, changes in her appetite, weight loss or night sweats. The patient does state that she has decreased sensation on the left side of her mouth when she was trying to eat. On presentation to the emergency department the patient was afebrile with a normal heart rate but was hypertensive with blood pressure of 180/95 and not in any respiratory distress. The patient underwent routine lab work which revealed mildly elevated glucose of 144 otherwise she had a negative troponin and normal electrolytes. The patient's UA was negative her blood alcohol level was 63. The patient did not have a leukocytosis. The patient was found to have a right facial droop and horizontal and vertical nystagmus on her examination. The patient did undergo a CT of her head which revealed generalized age-related cortical atrophic changes without evidence of acute intracranial abnormality. The patient was placed in the observation unit for further neurologic workup for a presumed stroke. - HOSPITAL COURSE Hospital Course: Patient was admitted to the medical [facility] for an acute stroke. The patient was found to have an acute infarct in the right posterolateral pontomedullary junc tion. There was also moderate white matter T2/flair bright signal seen in the cerebral hemispheres bilaterally and right periventricular cerebellum. There were findings of several scattered punctate foci of petechial microhemorrhage noted in the deep nuclear region. The patient initially presented with symptoms of ataxia, vertigo and right facial droop. 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 The patient also had decreased hot cold sensation on the left side of her face and in her left upper extremity. The patient's ataxia and vertigo appear to be improving over the course of the hospitalization. The patient was seen by physical therapy and occupational th kaden and was recommended for inpatient stroke rehab. The patient was monitored on telemetry and underwent an echocardiogram. The findings of the echocardiogram showed that the patient has severe aortic stenosis with peak/mean pressure gradient of 76 mmHg / 54 mmHg with an aortic valve area by continuity equation of 0.44 cm square. On telemetry the patient had runs of atrial fibrillation. The patient's LDL was found to be 78 and her hemoglobin A1c was 5.1. While in the hospital the patient was treated with full dose aspirin 325 mg and Lipitor 80 mg daily. The patient was not started on anticoagulation given the finding of a microhemorrhage on the CT scan. We will defer to a neurologist and/or quality control inspector to decide when it would be appropriate to start the patient on anticoagulation. It is evident that given her episodes of atrial fibrillation that she does need anticoagulation in the future to help to prevent further strokes. The patient was also having difficulty with swallowing and speech on day 2 of admission and was evaluated by speech therapy. Speech therapy noticed that the patient had significant amount of debris in her mouth and was having difficulty swallowing. They recommended a honey thick and pure diet. The patient was discharged to [facility] inpatient stroke rehab in the care of Valdo Castaneda. - ALLERGIES Allergies/Adverse Reactions: Allergies Allergy/AdvReac Type Severity Reaction Status Date / Time No Known Drug Allergies Allergy Unverified 06/19/18 02:07 - MEDICATIONS Home Medications: Ambulatory Orders Medication Instructions Recorded Confirmed Aspirin [Ambrose] 325 mg PO DAILYWM tablet 06/20/18 Atorvastatin [Lipitor] 80 mg PO QPM tablet 06/20/18 - PHYSICAL EXAM AT DISCHARGE General Appearance: positive: No acute distress, Alert, Other (Right facial droop with horners syndrome) Eyes Bilateral: positive: Normal inspection, PERRL, EOMI, No lid inflammation, Conjunctivae nml, No scleral icterus ENT: positive: ENT inspection nml, Pharynx nml, No signs of dehydration. negative: Purulent nasal drainage, Pharyngeal erythema, Oral lesions Neck: positive: Nml inspection, Thyroid nml, No JVD, Trachea midline. negative: Thyromegaly, Lymphadenopathy (R), Lymphadenopathy (L), Stiff neck, Carotid b ruit, Tracheal deviation Respiratory: positive: Chest non-tender, No respiratory distress, Breath sounds nml. negative: Wheezes, Rales, Rhonchi Cardiovascular: positive: Regular rate & rhythm, No murmur, No gallop Peripheral Pulses: positive: 2+ Abdomen: positive: Non-tender, No organomegaly, Nml bowel sounds. negative: Guarding, Rebound, Hepatomegaly Back: positive: Nml inspection. negative: CVA tenderness (R), CVA tenderness (L) Skin: positive: Color nml, No rash, Warm. negative: Cyanosis, Diaphoresis, Pallor, Skin rash Extremities: positive: Non-tender, Full ROM, Nml appearance, No pedal edema Neurologic/Psychiatric: positive: Oriented x3, Sensation nml (Decreased sensation to hot and cold on the left side of face), Facial droop (Right facial droop with gene syndrome), Slurred/abnml speech (Dysarthria), Other (Dysphagia, improvement in patients diplopia and vertigo) - LABS Result Diagrams: 06/20/18 05:25 06/20/18 05:25 Other Lab Results: Laboratory Results WBC 10.8 x10^3/uL (4.8-10.8) 06/20/18 05:25 RBC 4.00 10^6/uL (4.20-5.40) L 06/20/18 05:25 Hgb 12.7 g/dL (12.0-16.0) 06/20/18 05:25 Hct 38.5 % (37.0-47.0) 06/20/18 05:25 MCV 96.4 fL (81.0-99.0) 06/20/18 05:25 MCH 31.8 pg (27.0-31.0) H 06/20/18 05:25 MCHC 33.0 g/dL (32.0-36.0) 06/20/18 05:25 RDW 14.0 % (12.0-15.0) 06/20/18 05:25 Plt Count 215 10^3/uL (130-450) 06/20/18 05:25 MPV 8.4 fL (7.9-10.8) 06/20/18 05:25 Neut # (Auto) 9.0 10^3/uL (1.5-6.6) H 06/20/18 05:25 Lymph # (Auto) 1.1 10^3/uL (1.5-3.5) L 06/20/18 05:25 [place] # (Auto) 0.7 10^3/uL (0.0-1.0) 06/20/18 05:25 Eos # (Auto) 0.0 10^3/uL (0.0-0.7) 06/20/18 05:25 Baso # (Auto) 0.0 10^3/uL (0.0-0.1) 06/20/18 05:25 Absolute Nucleated RBC 0.00 x10^3/uL 06/20/18 05:25 Nucleated RBC % 0.0 /100WBC 06/20/18 05:25 PT 12.1 secs (9.9-12.6) 06/20/18 05:25 INR 1.1 (0.8-1.2) 06/20/18 05:25 Sodium 139 mmol/L (135-145) 06/20/18 05:25 Potassium 4.5 mmol/L (3.5-5.0) 06/20/18 05:25 Chloride 107 mmol/L (101-111) 06/20/18 05:25 Carbon Dioxide 26 mmol/L (21-32) 06/20/18 05:25 Anion Gap 6.0 (6-13) 06/20/18 05:25 BUN 15 mg/dL (6-20) 06/20/18 05:25 Creatinine 0.7 mg/dL (0.4-1.0) 06/20/18 05:25 Estimated GFR (MDRD) 79 (>89) L 06/20/18 05:25 Glucose 137 mg/dL (70-100) H 06/20/18 05:25 Glycated Hemoglobin 5.1 % (4.6-6.2) 06/20/18 05:25 Estim Average Glucose 100 (70-100) 06/20/18 05:25 Calcium 8.2 mg/dL (8.5-10.3) L 06/20/18 05:25 Phosphorus 3.5 mg/dL (2.5-4.6) 06/20/18 05:25 Magnesium 2.4 mg/dL (1.7-2.8) 06/20/18 05:25 Total Bilirubin 0.9 mg/dL (0.2-1.0) 06/20/18 05:25 AST 20 IU/L (10-42) 06/20/18 05:25 ALT 14 IU/L (10-60) 06/20/18 05:25 Alkaline Phosphatase 77 IU/L (42-121) 06/20/18 05:25 Troponin I < 0.04 ng/mL (<0.49) 06/19/18 02:20 Total Protein 6.2 g/dL (6.7-8.2) L 06/20/18 05:25 Albumin 3.3 g/dL (3.2-5.5) 06/20/18 05:25 Globulin 2.9 g/dL (2.1-4.2) 06/20/18 05:25 Albumin/Globulin Ratio 1.1 (1.0-2.2) 06/20/18 05:25 Triglycerides 38 mg/dL (-149) 06/20/18 05:25 Cholesterol 167 mg/dL (-199) 06/20/18 05:25 LDL Cholesterol Direct 78 mg/dL (-129) 06/20/18 05:25 LDL Cholesterol, Calc Not Reportable 06/20/18 05:25 VLDL Cholesterol Not Reportable 06/20/18 05:25 HDL Cholesterol 74 mg/dL (60-) 06/20/18 05:25 LDL/HDL Ratio Not Reportable 06/20/18 05:25 dLDL/HDL Ratio 1.1 (<4.4) 06/20/18 05:25 Cholesterol/HDL Ratio 2.3 (<4.4) 06/20/18 05:25 Lipase 119 U/L (22-51) H 06/19/18 02:20 Urine Color YELLOW 06/19/18 03:31 Urine Clarity CLEAR (CLEAR) 06/19/18 03:31 Urine pH 6.5 PH (5.0-7.5) 06/19/18 03:31 Ur Specific [place] 1.010 (1.002-1.030) 06/19/18 03:31 Urine Protein NEGATIVE mg/dL (NEGATIVE) 06/19/18 03:31 Urine Glucose (UA) NEGATIVE mg/dL (NEGATIVE) 06/19/18 03:31 Urine Ketones NEGATIVE mg/dL (NEGATIVE) 06/19/18 03:31 Urine Occult Blood NEGATIVE (NEGATIVE) 06/19/18 03:31 Urine Nitrite NEGATIVE (NEGATIVE) 06/19/18 03:31 Urine Bilirubin NEGATIVE (NEGATIVE) 06/19/18 03:31 Urine Urobilinogen 0.2 (NORMAL) E.U./dL (NORMAL) 06/19/18 03:31 Ur Leukocyte Esterase NEGATIVE (NEGATIVE) 06/19/18 03:31 Ur Microscopic Review NOT INDICATED 06/19/18 03:31 Urine Culture Comments NOT INDICATED 06/19/18 03:31 Ethyl Alcohol 63.0 mg/dL 06/19/18 02:20 - DIAGNOSTIC IMAGING Diagnostic Imaging Results: Final report reviewed Diagnostic Imaging Results Comments: CT head Impression: Generalized age-related cortical atrophic changes without evidence of acute i ntracranial abnormality MRI brain An oval 6 mm focus of restricted diffusion is seen in the right posterolateral pontomedullary junction at the inferior floor of the fourth ventricle. No intracranial mass. Moderate confluent periventricular with patchy deep and subcortical white matter T2/flair bright signal is seen in the cerebral hemispheres. Patchy involvement is seen in the right cerebellar periventricular region as well. There are a few punctate foci of petechial microhemorrhage seen in the lateral left putamen and posterior left thalamus. Questionable punctate focus is seen in the superior lateral right putamen as well. No parenchymal hematoma. Impression: 1. Acute infarct in the right posterolateral pontomedullary junction. 2. Moderate white matter T2/FLAIR bright signal seen in the cerebral hemispheres bilaterally and right periventricular cerebellum. This is nonspecific. This can be seen secondary to small vessel ischemic change. 3. Several scattered punctuate foci of petechial microhemorrhage noted in the deep nuclear region. This may be secondary to hypertension. No parenchymal hematoma. CTA head and neck Impression: 1. Mild scattered atherosclerotic change involving extracranial cerebral circulation in the thoracic inlet and neck. 2. Mild atherosclerotic calcification is seen in the CCA bifurcation bilaterally. No significant stenosis. Bilateral carotid arteries are patent. 3. Bilateral vertebral arteries are patent. Moderate stenosis secondary to extrinsic compression from degenerative change of the cervical spine is seen in the proximal V2 segment of the right vertebral artery. Mild atherosclerotic calcification is seen in the V3 segment of the left vertebral artery. No significant stenosis. 4. Anterior circulation is patent. Moderate vascular calcification is seen involving cavernous and proximal supracavernous ICA. No significant stenosis. 5. Right vertebral artery is patent. 6. The left vertebral artery demonstrates moderate to severe stenosis in the proximal V4 segment. Patent distal to this. The left [place] is dominant arising from the mid V4 segment. 7. The basilar artery and bifurcation is patent. Echocardiogram Impression: Mild concentric left ventricular hypertrophy. Overall left ve ntricular systolic function is normal with an ejection fraction of 60-65%. Diastolic function is indeterminate. No regional wall motion abnormalities are seen. Moderate right ventricular enlargement. Severe increase in left atrial volume index. The right atrial size is normal. The aortic valve is trileaflet. The aortic valve leaflets are severely calcified. Severe aortic stenosis with peak/mean pressure gradient of 76 mm / 54 mmHg, the aortic valve area by continuity equation is 0.44 cm. There is tracemild aortic regurgitation. There is thickening of the mitral valve leaflets. No mitral stenosis noted. Moderate mitral annular calcification. There is mild to moderate mitral regurgitation. The tricuspid valve appears structurally normal. No tricuspid stenosis noted. Moderate tricuspid regurgitation. Severely abnormal right heart pressures. The right ventricular systolic pressure at rest is 70 mmHg. No mass or thrombus identified. - FOLLOW UP Follow Up: Patient will be discharged to [facility] stroke rehab in the care of Dr. Valdo Castaneda. She will be continued on aspirin and Lipitor. She will receive physical therapy, occupational therapy and speech therapy ev aluations and treatment while she is at rehab. The patient will need to follow- up with neurology as an outpatient. The patient also was found to have atrial fibrillation while she was hospitalized and will need to be started on anticoagulation once she is cleared by neurology and/or cardiology. - TIME SPENT Time Spent in Discharge (Minutes): 55
[2018-06-20 12:00] VITALS: BP 145/65
== END 2018-06-20 14:24 | disposition short-term general hospital (02) | DRG 66 ==
LOC: EDUNIT# → ED 02:14 → MS2 06:59 → INTOOBSV 06:59 → OBS 08:12 → OBSVTOIN 11:12 → MS2 15:05
PROVIDERS: ADMIT Internal Medicine; ATTEND Internal Medicine
DX: I63.331 Cerebral infarction due to thrombosis of right posterior cerebral artery (principal); I63.81 Other cerebral infarction due to occlusion or stenosis of small artery; I08.3 Combined rheumatic disorders of mitral, aortic and tricuspid valves; I48.91 Unspecified atrial fibrillation; I11.9 Hypertensive heart disease without heart failure; I35.0 Nonrheumatic aortic (valve) stenosis; R73.9 Hyperglycemia, unspecified; E86.0 Dehydration; R29.810 Facial weakness; R29.704 NIHSS score 4; R40.2412 Glasgow coma scale score 13-15, at arrival to emergency department; R11.2 Nausea with vomiting, unspecified; H53.2 Diplopia; H55.00 Unspecified nystagmus; R27.0 Ataxia, unspecified; G90.2 Horner's syndrome; R20.8 Other disturbances of skin sensation; R13.10 Dysphagia, unspecified; R47.1 Dysarthria and anarthria
CPT/HCPCS: 36415; 70450; 70496; 70498; 70551; 80053; 80061; 80320; 81001; 81003; 83036; 83690; 83721; 83735; 84100; 84484; 85025; 85610; 87086; 93005; 93306; 96365; 96366; 96375; 99284; 99285

== ENCOUNTER 2018-07-14 09:28 | Outpatient (CLI) | payer MEDICARE, OTHER ==
[2018-07-14 18:17] LABS: BASOPHILS # (AUTO) 0.1 10^3/uL (0.0-0.1); BASOPHILS % (AUTO) 0.9 %; EOSINOPHILS # (AUTO) 0.3 10^3/uL (0.0-0.7); EOSINOPHILS % (AUTO) 5.1 %; HGB - HEMOGLOBIN 12.6 g/dL (12.0-16.0); LYMPHOCYTES # (AUTO) 1.5 10^3/uL (1.5-3.5); LYMPHOCYTES % (AUTO) 23.8 %; MEAN CORPUSCULAR HEMOGLOBIN 30.9 pg (27.0-31.0); MEAN CORPUSCULAR HGB CONC 33.3 g/dL (32.0-36.0); MEAN CORPUSCULAR VOLUME 92.7 fL (81.0-99.0); MONOCYTES # (AUTO) 0.5 10^3/uL (0.0-1.0); MONOCYTES % (AUTO) 7.8 %; NEUTROPHILS # (AUTO) 3.9 10^3/uL (1.5-6.6); NEUTROPHILS % (AUTO) 62.4 %; PLT - PLATELET COUNT 228 10^3/uL (130-450); RED BLOOD COUNT 4.08 10^6/uL (4.20-5.40); RED CELL DISTRIBUTION WIDTH 13.3 % (12.0-15.0); WHITE BLOOD COUNT 6.3 x10^3/uL (4.8-10.8)
== END 2018-07-14 09:29 | disposition home or self-care (01) ==
LOC: LAB.F 09:28
PROVIDERS: ATTEND Internal Medicine
DX: I48.91 Unspecified atrial fibrillation (principal); R03.0 Elevated blood-pressure reading, without diagnosis of hypertension; G47.62 Sleep related leg cramps
CPT/HCPCS: 36415; 85025; 85610

== ENCOUNTER 2018-07-23 09:56 | Outpatient (CLI) | payer MEDICARE, OTHER | END 2018-07-23 09:57 | disposition home or self-care (01) | LOC: LAB.F 09:56 | PROVIDERS: ATTEND Internal Medicine | DX: I48.91 Unspecified atrial fibrillation (principal); R03.0 Elevated blood-pressure reading, without diagnosis of hypertension; G47.62 Sleep related leg cramps | CPT/HCPCS: 36415; 85025; 85610 ==

== ENCOUNTER 2018-07-30 09:52 | Outpatient (CLI) | payer MEDICARE, OTHER | END 2018-07-30 09:53 | disposition home or self-care (01) | LOC: LAB.F 09:52 | PROVIDERS: ATTEND Internal Medicine | DX: I48.91 Unspecified atrial fibrillation (principal); R03.0 Elevated blood-pressure reading, without diagnosis of hypertension; G47.62 Sleep related leg cramps | CPT/HCPCS: 36415; 85025; 85610 ==

== ENCOUNTER 2018-08-13 10:54 | Outpatient (CLI) | payer MEDICARE, OTHER | END 2018-08-13 10:55 | disposition home or self-care (01) | LOC: LAB.F 10:54 | PROVIDERS: ATTEND Internal Medicine | DX: I48.91 Unspecified atrial fibrillation (principal); R03.0 Elevated blood-pressure reading, without diagnosis of hypertension; G47.62 Sleep related leg cramps | CPT/HCPCS: 36415; 85025; 85610 ==

== ENCOUNTER 2018-08-27 08:02 | Outpatient (CLI) | payer MEDICARE, OTHER | END 2018-08-27 08:03 | disposition home or self-care (01) | LOC: LAB.F 08:02 | PROVIDERS: ATTEND Internal Medicine | DX: I48.91 Unspecified atrial fibrillation (principal); R03.0 Elevated blood-pressure reading, without diagnosis of hypertension; G47.62 Sleep related leg cramps | CPT/HCPCS: 85610 ==

== ENCOUNTER 2018-09-11 08:45 | Outpatient (CLI) | payer MEDICARE, OTHER ==
[2018-09-11 09:16] LABS: BASOPHILS % (AUTO) 0.7 %; EOSINOPHILS # (AUTO) 0.1 10^3/uL (0.0-0.7); EOSINOPHILS % (AUTO) 2.2 %; HGB - HEMOGLOBIN 12.6 g/dL (12.0-16.0); LYMPHOCYTES # (AUTO) 1.5 10^3/uL (1.5-3.5); LYMPHOCYTES % (AUTO) 22.5 %; MEAN CORPUSCULAR HGB CONC 33.7 g/dL (32.0-36.0); MONOCYTES # (AUTO) 0.5 10^3/uL (0.0-1.0); MONOCYTES % (AUTO) 7.9 %; NEUTROPHILS # (AUTO) 4.3 10^3/uL (1.5-6.6); NEUTROPHILS % (AUTO) 66.7 %; PLT - PLATELET COUNT 237 10^3/uL (130-450); RED BLOOD COUNT 4.19 10^6/uL (4.20-5.40); WHITE BLOOD COUNT 6.5 x10^3/uL (4.8-10.8)
[2018-09-11 09:41] LABS: ALBUMIN 3.9 g/dL (3.2-5.5); ALBUMIN/GLOBULIN RATIO 1.2 (1.0-2.2); BILIRUBIN,TOTAL 1.4 mg/dL (0.2-1.0); CALCIUM 8.9 mg/dL (8.5-10.3); CREATININE 0.8 mg/dL (0.4-1.0); TOTAL PROTEIN 7.1 g/dL (6.7-8.2)
== END 2018-09-11 08:46 | disposition home or self-care (01) ==
LOC: LAB 08:45
PROVIDERS: ATTEND Internal Medicine Cardiovascular Disease
DX: I35.0 Nonrheumatic aortic (valve) stenosis (principal)
CPT/HCPCS: 36415; 80053; 85025

== ENCOUNTER 2018-09-19 10:44 | Outpatient (CLI) | payer MEDICARE, OTHER ==
[2018-09-19 18:03] LABS: CREATININE 0.7 mg/dL (0.4-1.0)
== END 2018-09-19 10:45 | disposition home or self-care (01) ==
LOC: LAB.F 10:44
PROVIDERS: ATTEND Nurse Practitioner
DX: Z01.818 Encounter for other preprocedural examination (principal); I35.0 Nonrheumatic aortic (valve) stenosis; I48.91 Unspecified atrial fibrillation; R03.0 Elevated blood-pressure reading, without diagnosis of hypertension; G47.62 Sleep related leg cramps
CPT/HCPCS: 36415; 82565; 85610

== ENCOUNTER 2018-09-22 13:42 | Outpatient (CLI) | payer MEDICARE, OTHER | END 2018-09-22 13:43 | disposition home or self-care (01) | LOC: LAB.F 13:42 | PROVIDERS: ATTEND Internal Medicine | DX: I48.91 Unspecified atrial fibrillation (principal); R03.0 Elevated blood-pressure reading, without diagnosis of hypertension; G47.62 Sleep related leg cramps | CPT/HCPCS: 85610 ==

== ENCOUNTER 2018-09-25 09:28 | Outpatient (CLI) | payer MEDICARE, OTHER | END 2018-09-25 09:29 | disposition home or self-care (01) | LOC: LAB.F 09:28 | PROVIDERS: ATTEND Internal Medicine | DX: I48.91 Unspecified atrial fibrillation (principal); R03.0 Elevated blood-pressure reading, without diagnosis of hypertension; G47.62 Sleep related leg cramps | CPT/HCPCS: 36415; 85025; 85610 ==

== ENCOUNTER 2018-10-14 08:00 | Outpatient (CLI) | payer MEDICARE, OTHER ==
[2018-10-14 18:36] LABS: CHOL/HDL RATIO 2.3 (<4.4); CHOLESTEROL 112 mg/dL; HDL CHOLESTEROL 49 mg/dL; LDL CHOLESTEROL,CALCULATED 51 mg/dL; VLDL CHOLESTEROL 12 mg/dL
== END 2018-10-14 23:59 | disposition home or self-care (01) ==
LOC: LAB.F 08:00
PROVIDERS: ATTEND Internal Medicine
DX: I35.0 Nonrheumatic aortic (valve) stenosis (principal); I48.91 Unspecified atrial fibrillation; I63.9 Cerebral infarction, unspecified; C44.92 Squamous cell carcinoma of skin, unspecified; Z13.6 Encounter for screening for cardiovascular disorders; G47.62 Sleep related leg cramps; R03.0 Elevated blood-pressure reading, without diagnosis of hypertension
CPT/HCPCS: 36415; 80061; 83721; 85025; 85610

== ENCOUNTER 2018-10-16 09:26 | Outpatient (CLI) | payer MEDICARE, OTHER | END 2018-10-16 09:27 | disposition home or self-care (01) | LOC: LAB.F 09:26 | PROVIDERS: ATTEND Internal Medicine | DX: I48.91 Unspecified atrial fibrillation (principal); R03.0 Elevated blood-pressure reading, without diagnosis of hypertension; G47.62 Sleep related leg cramps | CPT/HCPCS: 36415; 85610 ==

== ENCOUNTER 2018-10-23 13:54 | Outpatient (CLI) | payer MEDICARE, OTHER | END 2018-10-23 13:55 | disposition home or self-care (01) | LOC: LAB.F 13:54 | PROVIDERS: ATTEND Internal Medicine | DX: I48.91 Unspecified atrial fibrillation (principal); R03.0 Elevated blood-pressure reading, without diagnosis of hypertension; G47.62 Sleep related leg cramps | CPT/HCPCS: 85610 ==

== ENCOUNTER 2018-10-29 07:12 | Outpatient (CLI) | payer MEDICARE, OTHER | END 2018-10-29 07:13 | disposition home or self-care (01) | LOC: LAB.F 07:12 | PROVIDERS: ATTEND Internal Medicine | DX: I48.91 Unspecified atrial fibrillation (principal); E03.0 Congenital hypothyroidism with diffuse goiter; G47.62 Sleep related leg cramps | CPT/HCPCS: 85610 ==

== ENCOUNTER 2018-11-03 08:22 | Outpatient (CLI) | payer MEDICARE, OTHER | END 2018-11-03 08:23 | disposition home or self-care (01) | LOC: LAB.F 08:22 | PROVIDERS: ATTEND Internal Medicine | DX: I48.91 Unspecified atrial fibrillation (principal); R03.0 Elevated blood-pressure reading, without diagnosis of hypertension; G47.62 Sleep related leg cramps | CPT/HCPCS: 36415; 85025; 85610 ==

== ENCOUNTER 2018-11-10 09:50 | Outpatient (CLI) | payer MEDICARE, OTHER | END 2018-11-10 09:51 | disposition home or self-care (01) | LOC: LAB.F 09:50 | PROVIDERS: ATTEND Internal Medicine | DX: I48.91 Unspecified atrial fibrillation (principal); R03.0 Elevated blood-pressure reading, without diagnosis of hypertension; G47.62 Sleep related leg cramps | CPT/HCPCS: 85610 ==

== ENCOUNTER 2018-11-17 11:06 | Outpatient (CLI) | payer MEDICARE, OTHER | END 2018-11-17 11:07 | disposition home or self-care (01) | LOC: LAB.F 11:06 | PROVIDERS: ATTEND Internal Medicine | DX: I48.91 Unspecified atrial fibrillation (principal); R03.0 Elevated blood-pressure reading, without diagnosis of hypertension; G47.62 Sleep related leg cramps | CPT/HCPCS: 85610 ==

== ENCOUNTER 2018-11-19 07:47 | Outpatient (CLI) | payer MEDICARE, OTHER ==
--- NOTE | 2018-11-19 08:32 | Mammography Report ---
Reason: SCREENING MAMMO Procedure Date: 11/19/2018 Accession Number: [id number] / [id number] Procedure: ARMANDO - Screening Mammo w/Manuel CPT Code: FULL RESULT: EXAM: Screening Mammo w/Manuel DATE: 11/19/2018 8:10 AM CLINICAL HISTORY: Screening encounter. Family history of breast cancer in a sister at the age of 70. History of benign left breast biopsy, excisional type in 1959. TECHNIQUE: (B) - Bilateral CC and MLO views were obtained. COMPARISON: None PARENCHYMAL PATTERN: (A) - The breast(s) demonstrate(s) scattered fibroglandular densities. FINDINGS: There are typically benign vascular calcifications bilaterally. There are typically benign coarse calcifications bilaterally. In the right breast 12:00 immediate retroareolar region is a 7 mm isodense well-circumscribed nodule seen on right MLO image 46 and right CC image 39 which should be characterized by focused right breast ultrasound. There are no suspicious masses, calcifications, or areas of distortion. IMPRESSION: Incomplete examination. BI-RADS category 0. RECOMMENDATION: (ADDUS) - Targeted ultrasound recommended. Additional targeted ultrasound of the right breast retroareolar region 12:00. Please note that no prior comparison images are available. If greater than two-year stability of the finding can be established by comparison to previous exams, no further imaging is necessary. BI-RADS CATEGORY: (0) - Incomplete Examination - need additional evaluation. STANDARD QUALIFYING STATEMENTS: 1. This examination was not reviewed with the aid of Computer-Aided Detection (CAD). 2. A negative or benign imaging report should not preclude biopsy if clinically suspicious findings are present. 3. Dense breasts may obscure an underlying neoplasm. 4. This examination was reviewed with the aid of 3D breast imaging (tomosynthesis).
== END 2018-11-19 07:48 | disposition home or self-care (01) ==
LOC: DI 07:47
PROVIDERS: ATTEND Internal Medicine
DX: Z12.31 Encounter for screening mammogram for malignant neoplasm of breast (principal); R92.8 Other abnormal and inconclusive findings on diagnostic imaging of breast; Z80.3 Family history of malignant neoplasm of breast
CPT/HCPCS: 77063; 77067

== ENCOUNTER 2018-12-01 09:32 | Outpatient (CLI) | payer MEDICARE, OTHER | END 2018-12-01 09:33 | disposition home or self-care (01) | LOC: LAB.F 09:32 | PROVIDERS: ATTEND Internal Medicine | DX: I48.91 Unspecified atrial fibrillation (principal); R03.0 Elevated blood-pressure reading, without diagnosis of hypertension; G47.62 Sleep related leg cramps | CPT/HCPCS: 85025; 85610 ==

== ENCOUNTER 2018-12-05 15:09 | Emergency (ER) | payer MEDICARE, OTHER ==
--- NOTE | 2018-12-05 17:24 | ED Physician Documentation ---
PD HPI FOCAL NEURO - Stated complaint Stated Complaint: R side facial droop x 2 days - Chief complaint Chief Complaint: Neuro - History obtained from History obtained from: Patient, Family - History of Present Illness Timing - onset: Other (88-year-old woman with history of atrial fibrillation on warfarin and a stroke 6 months ago. Presents with a mild right facial droop over the last 2 days without arm or leg symptoms. No headache. She had her INR checked earlier this week and it was 2.0. She also noticed a red spot in her left eye today.) Review of Systems Ten Systems: 10 systems reviewed and negative Constitutional: denies: Fever, Chills Nose: denies: Rhinorrhea / runny nose, Congestion, Epistaxis Cardiac: denies: Chest pain / pressure, Palpitations Respiratory: denies: Dyspnea, Cough PD PAST MEDICAL HISTORY - Past Medical History Cardiovascular: Hypertension Respiratory: None Neuro: None Endocrine/Autoimmune: None GI: Colon polyps PACK MASTER: Ovarian cysts : None HEENT: None Psych: None Musculoskeletal: None Derm: None - Past Surgical History Past Surgical History: Yes General: Bowel surgery /PACK MASTER: Oophrectomy - Present Medications Home Medications: Ambulatory Orders Medication Instructions Recorded Confirmed RX: Aspirin [Ambrose] 325 mg PO DAILYWM tablet 06/20/18 RX: Atorvastatin [Lipitor] 80 mg PO QPM tablet 06/20/18 - Allergies Allergies/Adverse Reactions: Allergies Allergy/AdvReac Type Severity Reaction Status Date / Time No Known Drug Allergies Allergy Unverified 06/19/18 02:07 - Social History Does the pt smoke?: No Smoking Status: Never smoker Does the pt drink ETOH?: Yes Does the pt have substance abuse?: No - Immunizations Immunizations are current?: Yes - POLST Patient has POLST: No POLST Status: DNR PD ED PE NORMAL - Vitals Vital signs reviewed: Yes - General General: Alert and oriented X 3, No acute distress - HEENT HEENT: PERRL, EOMI, Other (There is a very small left bilateral sub-conjunctival hematoma without swelling) - Neck Neck: Supple, no meningeal sign, No bony TTP - Neuro Neuro: Alert and oriented X 3, geometry professor 2-12 intact Eye Opening: Spontaneous Motor: Obeys Commands Verbal: Oriented GCS Score: 15 - Psych Psych: Normal mood, Normal affect NIHSS - Time Time: 17:20 - Level of Consciousness Level of consciousness: (0) Alert, Keenly responsive LOC Questions: (0) Answers both Q's correct LOC Commands: (0) Performs both correctly - Gaze Best Gaze: (0) Normal - Visual Visual: (0) No loss - Facial Palsy Facial Palsy: (1) Minor paralysis (Potentially very mild facial droop on the right that does not seem to spare the forehead.) - Motor Arms (both separate) Motor Arm (right): (0) No drift Motor Arm (left): (0) No drift - Motor Legs (both separate) Motor Leg (right): (0) No drift Motor Leg (left): (0) No drift - Limb Ataxia Limb Ataxia: (0) Absent - Sensory Sensory: (0) Normal (incl face) - Best Language Best Language: (0) No aphasia - Dysarthria Dysarthria: (0) Normal - Extinction and Inattention (formally neg Extinction and inattention: (0) No abnormality - Total Score/Results Total Score/Result: 1 Results - Vitals Vitals: Vital Signs - 24 hr 12/05/18 12/05/18 15:15 17:18 Temperature 35.6 C L Heart Rate 90 90 Respiratory 16 16 Rate Blood Pressure 136/84 H 135/84 H O2 Saturation 98 98 Oxygen O2 Source Room air - Labs Labs: Laboratory Tests 12/05/18 12/05/18 12/05/18 17:29 17:29 17:29 WBC 5.5 RBC 4.33 Hgb 12.8 Hct 38.0 MCV 87.8 MCH 29.5 MCHC 33.6 RDW 14.7 Plt Count 214 MPV 8.6 Neut # (Auto) 3.1 Lymph # (Auto) 1.8 Hinds # (Auto) 0.4 Eos # (Auto) 0.1 Baso # (Auto) 0.0 Absolute Nucleated RBC 0.00 Nucleated RBC % 0.0 PT 22.7 H INR 2.0 H Sodium 140 Potassium 4.5 Chloride 103 Carbon Dioxide 27 Anion Gap 10.0 BUN 18 Creatinine 0.7 Estimated GFR (MDRD) 79 L Glucose 105 H Calcium 9.2 - Rads (name of study) Ct Head Radiology: EMP read contemporaneously (atrophy, NAD) PD MEDICAL DECISION MAKING - ED course ED course: This is an 88-year-old woman who has a left subconjunctival hemorrhage, I discussed with her that this is quite small and of no specific consequence. She also noticed a right-sided facial droop, it is mild on examination today. Records were reviewed, her previous stroke would explain this and that was her presenting symptom when she had her stroke before. She thinks it went away and may be came back but she is not convinced. There are no otherfindings and given that she is therapeutic and the time course no other intervention is necessary at this juncture. Departure - Departure Disposition: 01 Home, Self Care Clinical Impression: Subconjunctival hemorrhage of left eye, Adequate anticoagulation on anticoagulant therapy, CVA (cerebral vascular accident) Condition: Good Record reviewed to determine appropriate education?: Yes Comments: As discussed her head CT is normal today and her INR is 2.0. If your symptoms worsen or spread to the arm or leg please return immediately for reevaluation. Follow-up with your doctor, next available appointment. Discharge Date/Time: 12/05/18 18:46
[2018-12-05 17:34] LABS: BASOPHILS % (AUTO) 0.4 %; EOSINOPHILS # (AUTO) 0.1 10^3/uL (0.0-0.7); EOSINOPHILS % (AUTO) 2.4 %; HGB - HEMOGLOBIN 12.8 g/dL (12.0-16.0); LYMPHOCYTES # (AUTO) 1.8 10^3/uL (1.5-3.5); LYMPHOCYTES % (AUTO) 32.1 %; MEAN CORPUSCULAR HEMOGLOBIN 29.5 pg (27.0-31.0); MEAN CORPUSCULAR HGB CONC 33.6 g/dL (32.0-36.0); MEAN CORPUSCULAR VOLUME 87.8 fL (81.0-99.0); MEAN PLATELET VOLUME 8.6 fL (7.9-10.8); MONOCYTES # (AUTO) 0.4 10^3/uL (0.0-1.0); MONOCYTES % (AUTO) 7.8 %; NEUTROPHILS # (AUTO) 3.1 10^3/uL (1.5-6.6); NEUTROPHILS % (AUTO) 57.3 %; PLT - PLATELET COUNT 214 10^3/uL (130-450); RED BLOOD COUNT 4.33 10^6/uL (4.20-5.40); RED CELL DISTRIBUTION WIDTH 14.7 % (12.0-15.0); WHITE BLOOD COUNT 5.5 x10^3/uL (4.8-10.8)
[2018-12-05 17:40] LABS: PT - PROTHROMBIN TIME 22.7 secs (9.9-12.6)
[2018-12-05 17:46] LABS: CALCIUM 9.2 mg/dL (8.5-10.3); CREATININE 0.7 mg/dL (0.4-1.0)
--- NOTE | 2018-12-05 18:22 | CT Report ---
Reason: R facial droop Procedure Date: 12/05/2018 Accession Number: [id number] / [id number] Procedure: CT - HEAD WO CPT Code: FULL RESULT: EXAM: CT HEAD EXAM DATE: 12/05/2018 05:52 PM. CLINICAL HISTORY: R facial droop. COMPARISON: HEAD ANGIO 06/19/2018 8:00 AM. TECHNIQUE: Multiaxial CT images were obtained from the foramen magnum to the vertex. Reformats: Sagittal and coronal. IV contrast: None. In accordance with CT protocol optimization, one or more of the following dose reduction techniques were utilized for this exam: automated exposure control, adjustment of mA and/or KV based on patient size, or use of iterative reconstructive technique. FINDINGS: Parenchyma: No intraparenchymal hemorrhage. No evidence of mass, midline shift, or CT findings of acute infarction. Juan-white differentiation is distinct. Diffuse chronic microangiopathic white matter changes. Extraaxial Spaces: Normal for age. No subdural or epidural collections. Ventricles: The ventricles and cortical sulci are enlarged, consistent with age-related tissue loss. Sinuses and orbits: Imaged paranasal sinuses, orbits, and mastoids show no significant abnormality. Bones: Unremarkable. Other: None. IMPRESSION: Generalized age-related cortical atrophic changes without evidence of acute intracranial abnormality. RADIA
[2018-12-05 18:43] VITALS: BP 135/84
== END 2018-12-05 18:46 | disposition home or self-care (01) ==
LOC: ED 15:09
DX: H11.32 Conjunctival hemorrhage, left eye (principal); I69.392 Facial weakness following cerebral infarction; I48.91 Unspecified atrial fibrillation; Z79.01 Long term (current) use of anticoagulants; I10 Essential (primary) hypertension
CPT/HCPCS: 36415; 70450; 80048; 85025; 85610; 99283; 99284

== ENCOUNTER 2018-12-10 07:06 | Outpatient (CLI) | payer MEDICARE, OTHER | END 2018-12-10 07:07 | disposition home or self-care (01) | LOC: LAB.F 07:06 | PROVIDERS: ATTEND Internal Medicine | DX: I48.91 Unspecified atrial fibrillation (principal); R03.0 Elevated blood-pressure reading, without diagnosis of hypertension; G47.62 Sleep related leg cramps | CPT/HCPCS: 85610 ==

== ENCOUNTER 2018-12-30 07:50 | Outpatient (CLI) | payer MEDICARE, OTHER | END 2018-12-30 07:51 | disposition home or self-care (01) | LOC: LAB.S 07:50 | PROVIDERS: ATTEND Internal Medicine | DX: I48.91 Unspecified atrial fibrillation (principal); R03.0 Elevated blood-pressure reading, without diagnosis of hypertension; G47.62 Sleep related leg cramps | CPT/HCPCS: 85610 ==

== ENCOUNTER 2019-01-06 08:40 | Outpatient (CLI) | payer MEDICARE, OTHER | END 2019-01-06 08:41 | disposition home or self-care (01) | LOC: LAB.S 08:40 | PROVIDERS: ATTEND Internal Medicine | DX: I48.91 Unspecified atrial fibrillation (principal); R03.0 Elevated blood-pressure reading, without diagnosis of hypertension; G47.62 Sleep related leg cramps | CPT/HCPCS: 85610 ==

== ENCOUNTER 2019-01-19 09:53 | Outpatient (CLI) | payer MEDICARE, OTHER | END 2019-01-19 09:54 | disposition home or self-care (01) | LOC: LAB.S 09:53 | PROVIDERS: ATTEND Internal Medicine | DX: I48.91 Unspecified atrial fibrillation (principal); R03.0 Elevated blood-pressure reading, without diagnosis of hypertension; G47.62 Sleep related leg cramps | CPT/HCPCS: 85610 ==

== ENCOUNTER 2019-01-28 15:00 | Outpatient (CLI) | payer MEDICARE, OTHER | END 2019-01-28 15:01 | disposition home or self-care (01) | LOC: LAB.S 15:00 | PROVIDERS: ATTEND Internal Medicine | DX: I48.91 Unspecified atrial fibrillation (principal); R03.0 Elevated blood-pressure reading, without diagnosis of hypertension; G47.62 Sleep related leg cramps | CPT/HCPCS: 85610 ==

== ENCOUNTER 2019-03-05 07:26 | Outpatient (CLI) | payer MEDICARE, OTHER | END 2019-03-05 07:27 | disposition home or self-care (01) | LOC: LAB.S 07:26 | PROVIDERS: ATTEND Internal Medicine | DX: I48.91 Unspecified atrial fibrillation (principal); R03.0 Elevated blood-pressure reading, without diagnosis of hypertension; G47.62 Sleep related leg cramps | CPT/HCPCS: 36415; 85025; 85610 ==

== ENCOUNTER 2019-03-06 07:41 | Outpatient (CLI) | payer MEDICARE, OTHER | END 2019-03-06 07:42 | disposition home or self-care (01) | LOC: DI 07:41 | PROVIDERS: ATTEND Internal Medicine Cardiovascular Disease | DX: I08.3 Combined rheumatic disorders of mitral, aortic and tricuspid valves (principal); I27.20 Pulmonary hypertension, unspecified | CPT/HCPCS: 93306 ==

== ENCOUNTER 2019-04-09 07:38 | Outpatient (CLI) | payer MEDICARE, OTHER | END 2019-04-09 07:39 | disposition home or self-care (01) | LOC: LAB.S 07:38 | PROVIDERS: ATTEND Internal Medicine | DX: I48.91 Unspecified atrial fibrillation (principal); R03.0 Elevated blood-pressure reading, without diagnosis of hypertension; G47.62 Sleep related leg cramps | CPT/HCPCS: 85610 ==

== ENCOUNTER 2019-05-21 08:17 | Outpatient (CLI) | payer MEDICARE, OTHER | END 2019-05-21 08:18 | disposition home or self-care (01) | LOC: LAB.S 08:17 | PROVIDERS: ATTEND Internal Medicine | DX: I48.91 Unspecified atrial fibrillation (principal); R03.0 Elevated blood-pressure reading, without diagnosis of hypertension; G47.62 Sleep related leg cramps | CPT/HCPCS: 36415; 85025; 85610 ==

== ENCOUNTER 2019-06-01 09:51 | Outpatient (CLI) | payer MEDICARE, OTHER | END 2019-06-01 09:52 | disposition home or self-care (01) | LOC: LAB.S 09:51 | PROVIDERS: ATTEND Internal Medicine | DX: I48.91 Unspecified atrial fibrillation (principal); R03.0 Elevated blood-pressure reading, without diagnosis of hypertension; G47.62 Sleep related leg cramps | CPT/HCPCS: 85610 ==

== ENCOUNTER 2019-07-14 05:33 | Outpatient (CLI) | payer MEDICARE, OTHER | END 2019-07-14 05:34 | disposition critical access hospital (66) | LOC: EMS 05:33 | PROVIDERS: ATTEND Surgery | DX: R58 Hemorrhage, not elsewhere classified (principal) | CPT/HCPCS: A0425; A0429 ==

== ENCOUNTER 2019-07-14 06:02 | Emergency (ER) | payer MEDICARE, OTHER ==
--- NOTE | 2019-07-14 06:22 | ED Physician Documentation ---
History of Present Illness - Stated complaint Stated Complaint: BLEEDING FROM MOUTH - Chief complaint Chief Complaint: Heent - History obtained from History obtained from: Patient - History of Present Illness Timing: Today - Additonal information Additional information: 89-year-old female with a history of aortic stenosis and CVA as well as atrial fibrillation is on some Coumadin. She awoke this morning with a blood clot from her mouth she is found a molar in the back where there is some bleeding. She has not had this symptom previously. She has had a subconjunctival hemorrhage once and at that time she did not need adjustment to her Coumadin. She has not had an INR check in 2 to 3 months was due to get it yesterday and was not able to secondary to weather conditions.The patient does report that she has decreased her drinking to about once per week with her daughter and otherwise does not drink. Review of Systems Constitutional: denies: Fever Eyes: denies: Decreased vision Ears: denies: Ear pain Nose: denies: Rhinorrhea / runny nose, Congestion Throat: denies: Sore throat Cardiac: denies: Chest pain / pressure, Palpitations Respiratory: reports: Dyspnea (on exertion). denies: Cough, Hemoptysis GI: reports: Diarrhea. denies: Abdominal Pain, Nausea, Vomiting, Constipation : denies: Dysuria, Frequency Skin: denies: Rash Musculoskeletal: denies: Neck pain, Back pain, Extremity pain, Extremity swelling Neurologic: denies: Generalized weakness, Focal weakness, Numbness, Difficulty speaking, Near syncope, Syncope PD PAST MEDICAL HISTORY - Past Medical History Past Medical History: Yes Cardiovascular: Atrial fibrillation Respiratory: None Neuro: CVA Endocrine/Autoimmune: None GI: Colon polyps, Diverticulitis ASSISTANT ATTORNEY GENERAL: Ovarian cysts : None HEENT: None Psych: None Musculoskeletal: Osteoarthritis Derm: Herpes zoster - Past Surgical History Past Surgical History: Yes General: Bowel surgery /ASSISTANT ATTORNEY GENERAL: Oophrectomy, Other - Present Medications Home Medications: Ambulatory Orders Medication Instructions Recorded Confirmed Aspirin [Ambrose] 325 mg PO DAILYWM tablet 06/20/18 Atorvastatin [Lipitor] 80 mg PO QPM tablet 06/20/18 - Allergies Allergies/Adverse Reactions: Allergies Allergy/AdvReac Type Severity Reaction Status Date / Time No Known Drug Allergies Allergy Unverified 06/19/18 02:07 - Social History Does the pt smoke?: No Smoking Status: Never smoker Does the pt drink ETOH?: Yes Does the pt have substance abuse?: No - Immunizations Immunizations are current?: Yes - POLST Patient has POLST: No POLST Status: DNR PD ED PE NORMAL - Vitals Vital signs reviewed: Yes (hypertensive ) - General General: Alert and oriented X 3, No acute distress, Well developed/nourished - HEENT HEENT: Atraumatic, PERRL, EOMI, Other (There is bleeding from the upper molar on the left next to the last molar at the gingival margin. There is no swelling ) - Neck Neck: Supple, no meningeal sign, No bony TTP - Cardiac Cardiac: Other (irregularly irregular with a 3/6 holosystolic murmer at LSB radiating to the back and audible on lung exam. ) - Respiratory Respiratory: No respiratory distress, Clear bilaterally - Abdomen Abdomen: Soft, Non tender - Back Back: No CVA TTP, No spinal TTP - Derm Derm: Normal color, Warm and dry, No rash - Extremities Extremities: No deformity, No edema, No calf tenderness / cord - Neuro Neuro: Alert and oriented X 3, checker product design 2-12 intact, No motor deficit, No sensory deficit, Normal speech Eye Opening: Spontaneous Motor: Obeys Commands Verbal: Oriented GCS Score: 15 - Psych Psych: Normal mood, Normal affect Results - Vitals Vitals: Vital Signs - 24 hr 07/14/19 06:05 Temperature 36.1 C L Heart Rate 79 Respiratory 14 Rate Blood Pressure 147/66 H O2 Saturation 97 Oxygen O2 Source Room air - Labs Labs: Laboratory Tests 07/14/19 07/14/19 07/14/19 06:33 06:33 06:33 WBC 5.5 RBC 4.08 L Hgb 12.0 Hct 36.7 L MCV 90.0 MCH 29.4 MCHC 32.7 RDW 14.4 Plt Count 194 MPV 10.0 Neut # (Auto) 3.3 Lymph # (Auto) 1.6 Camp # (Auto) 0.5 Eos # (Auto) 0.2 Baso # (Auto) 0.0 Absolute Nucleated RBC 0.00 Nucleated RBC % 0.0 PT 43.6 H INR 4.1 H Sodium 140 Potassium 3.9 Chloride 104 Carbon Dioxide 28 Anion Gap 8.0 BUN 14 Creatinine 0.8 Estimated GFR (MDRD) 68 L Glucose 100 Calcium 9.2 Total Bilirubin 1.2 H AST 45 H ALT 39 Alkaline Phosphatase 90 Total Protein 6.5 L Albumin 3.7 Globulin 2.8 Albumin/Globulin Ratio 1.3 Lipase 49 Ethyl Alcohol < 5.0 PD MEDICAL DECISION MAKING - ED course Complexity details: reviewed old records, reviewed results, re-evaluated patient, considered differential, d/w patient, d/w family ED course: 89-year-old female on Coumadin for atrial fibrillation has aortic stenosis and she has had some [id number] bleeding in her mouth that is now controlled. Her INR is 4.1. I have asked her to withhold her Coumadin for 2 days and then to begin it again and follow-up with Dr. Henry for recheck of her INR. The patient has been on 5 mg daily and 7.5 mg on Mondays. She did take that dose last night. She states that she had only 1 glass of wine to drink on Saturday and that she is no longer drinking whiskey. Departure - Departure Disposition: 01 Home, Self Care Clinical Impression: Supratherapeutic INR Condition: Stable Instructions: Prothrombin Time Follow-Up: Juno Henry MD [Primary Care Provider] - Comments: Today your INR is 4.1 and the bleeding you have in your mouth is not life-threatening. We recommend that you discontinue your Coumadin for 2 days and then resume it at 5 mg daily and follow-up with Dr. Henry for a recheck of your INR.
[2019-07-14 06:38] LABS: BASOPHILS % (AUTO) 0.5 %; EOSINOPHILS # (AUTO) 0.2 10^3/uL (0.0-0.7); EOSINOPHILS % (AUTO) 3.2 %; LYMPHOCYTES # (AUTO) 1.6 10^3/uL (1.5-3.5); LYMPHOCYTES % (AUTO) 28.2 %; MEAN CORPUSCULAR HEMOGLOBIN 29.4 pg (27.0-31.0); MEAN CORPUSCULAR HGB CONC 32.7 g/dL (32.0-36.0); MONOCYTES # (AUTO) 0.5 10^3/uL (0.0-1.0); MONOCYTES % (AUTO) 8.7 %; NEUTROPHILS # (AUTO) 3.3 10^3/uL (1.5-6.6); PLT - PLATELET COUNT 194 10^3/uL (130-450); RED BLOOD COUNT 4.08 10^6/uL (4.20-5.40); RED CELL DISTRIBUTION WIDTH 14.4 % (12.0-15.0); WHITE BLOOD COUNT 5.5 x10^3/uL (4.8-10.8)
[2019-07-14 06:43] LABS: INR 4.1 (0.8-1.2); PT - PROTHROMBIN TIME 43.6 secs (9.9-12.6)
[2019-07-14 06:49] LABS: ALBUMIN 3.7 g/dL (3.2-5.5); ALBUMIN/GLOBULIN RATIO 1.3 (1.0-2.2); ALKALINE PHOSPHATASE 90 IU/L (42-121); ALT ALANINE AMINOTRANSFERASE 39 IU/L (10-60); AST ASPARTATE AMINOTRANSFERASE 45 IU/L (10-42); BILIRUBIN,TOTAL 1.2 mg/dL (0.2-1.0); BUN - BLOOD UREA NITROGEN 14 mg/dL (6-20); CALCIUM 9.2 mg/dL (8.5-10.3); CARBON DIOXIDE - CO2 28 mmol/L (21-32); CHLORIDE 104 mmol/L (101-111); CREATININE 0.8 mg/dL (0.4-1.0); GFR - MDRD 68 (>89); GLUCOSE 100 mg/dL (70-100); LIPASE 49 U/L (22-51); SODIUM 140 mmol/L (135-145); TOTAL PROTEIN 6.5 g/dL (6.7-8.2)
[2019-07-14 07:19] VITALS: BP 139/61
== END 2019-07-14 07:18 | disposition home or self-care (01) ==
LOC: EDUNIT# → ED 06:02
DX: R79.1 Abnormal coagulation profile (principal); R58 Hemorrhage, not elsewhere classified; Z79.01 Long term (current) use of anticoagulants
CPT/HCPCS: 36415; 80053; 80320; 83690; 85025; 85610; 99283; 99284

== ENCOUNTER 2019-07-21 07:56 | Outpatient (CLI) | payer MEDICARE, OTHER | END 2019-07-21 07:57 | disposition home or self-care (01) | LOC: LAB.S 07:56 | PROVIDERS: ATTEND Internal Medicine | DX: I48.91 Unspecified atrial fibrillation (principal); R03.0 Elevated blood-pressure reading, without diagnosis of hypertension; G47.62 Sleep related leg cramps | CPT/HCPCS: 85610 ==

== ENCOUNTER 2019-08-13 07:44 | Outpatient (CLI) | payer MEDICARE, OTHER | END 2019-08-13 07:45 | disposition home or self-care (01) | LOC: LAB.S 07:44 | PROVIDERS: ATTEND Internal Medicine | DX: I48.91 Unspecified atrial fibrillation (principal); R03.0 Elevated blood-pressure reading, without diagnosis of hypertension; G47.62 Sleep related leg cramps | CPT/HCPCS: 85610 ==

== ENCOUNTER 2019-08-18 07:30 | Outpatient (CLI) | payer MEDICARE, OTHER | END 2019-08-18 07:31 | disposition home or self-care (01) | LOC: LAB.S 07:30 | PROVIDERS: ATTEND Internal Medicine | DX: I48.91 Unspecified atrial fibrillation (principal); R03.0 Elevated blood-pressure reading, without diagnosis of hypertension; G47.62 Sleep related leg cramps | CPT/HCPCS: 85610 ==

== ENCOUNTER 2019-08-24 07:49 | Outpatient (CLI) | payer MEDICARE, OTHER ==
[2019-08-24 10:42] LABS: CALCIUM 8.4 mg/dL (8.5-10.3); CREATININE 0.8 mg/dL (0.4-1.0)
== END 2019-08-24 07:50 | disposition home or self-care (01) ==
LOC: LAB.S 07:49
PROVIDERS: ATTEND Internal Medicine Cardiovascular Disease
DX: I48.0 Paroxysmal atrial fibrillation (principal); R06.09 Other forms of dyspnea; I31.3 Pericardial effusion (noninflammatory); Z95.2 Presence of prosthetic heart valve; J90 Pleural effusion, not elsewhere classified; R03.0 Elevated blood-pressure reading, without diagnosis of hypertension; G47.62 Sleep related leg cramps
CPT/HCPCS: 36415; 80048; 85610

== ENCOUNTER 2019-08-27 11:05 | Outpatient (CLI) | payer MEDICARE, OTHER ==
--- NOTE | 2019-08-27 11:24 | XRAY Report ---
Reason: CHF,SOB Procedure Date: 08/27/2019 Accession Number: [id number] / [id number] Procedure: XR - Chest 2 View X-Ray CPT Code: 25570 Addended Final Report FULL RESULT: EXAM: CHEST RADIOGRAPHY EXAM DATE: 08/27/2019 11:16 AM. CLINICAL HISTORY: CHF, shortness of breath. COMPARISON: CHEST W/ 06/21/2015 4:03 PM. TECHNIQUE: 2 views. FINDINGS: Lungs/Pleura: Moderate to large left pleural effusion with adjacent atelectasis. Trace right pleural effusion. No interstitial edema evident. Mediastinum: Status post TAVR. Atherosclerotic aortic calcification. Enlarged cardiac silhouette. Other: Bones appear osteopenic. Generalized lower thoracic kyphosis. Right abdominal surgical clips. IMPRESSION: 1. Moderate to large left pleural effusion with adjacent atelectasis. RADIA The call report notification system was initiated by Dr. Martín Andres at 11:20 AM on 08/27/2019. ADDENDUM: 08/27/19 11:32 The above call report findings were discussed with Jose A Edwards by Dr. Martín Anders at 11:32 AM on 08/27/2019.
== END 2019-08-27 11:06 | disposition home or self-care (01) ==
LOC: DI 11:05
PROVIDERS: ATTEND Internal Medicine Cardiovascular Disease
DX: J90 Pleural effusion, not elsewhere classified (principal); I50.9 Heart failure, unspecified
CPT/HCPCS: 71046

== ENCOUNTER 2019-09-07 07:39 | Outpatient (CLI) | payer MEDICARE, OTHER ==
[2019-09-07 10:02] LABS: CALCIUM 8.4 mg/dL (8.5-10.3); CREATININE 0.7 mg/dL (0.4-1.0)
== END 2019-09-07 07:40 | disposition home or self-care (01) ==
LOC: LAB.S 07:39
PROVIDERS: ATTEND Internal Medicine
DX: I48.0 Paroxysmal atrial fibrillation (principal); R03.0 Elevated blood-pressure reading, without diagnosis of hypertension; G47.62 Sleep related leg cramps; R06.09 Other forms of dyspnea; I31.3 Pericardial effusion (noninflammatory); Z95.2 Presence of prosthetic heart valve; J90 Pleural effusion, not elsewhere classified
CPT/HCPCS: 36415; 80048; 85610

== ENCOUNTER 2019-09-11 07:51 | Outpatient (CLI) | payer MEDICARE, OTHER ==
[2019-09-11 11:24] LABS: PT - PROTHROMBIN TIME 98.7 secs (9.9-12.6)
[2019-09-11 11:40] LABS: INR 9.9 (0.8-1.2)
== END 2019-09-11 07:52 | disposition home or self-care (01) ==
LOC: LAB.S 07:51
PROVIDERS: ATTEND Internal Medicine
DX: I48.91 Unspecified atrial fibrillation (principal); R03.0 Elevated blood-pressure reading, without diagnosis of hypertension; G47.62 Sleep related leg cramps
CPT/HCPCS: 36415; 85610

== ENCOUNTER 2019-09-14 08:44 | Outpatient (CLI) | payer MEDICARE, OTHER | END 2019-09-14 08:45 | disposition home or self-care (01) | LOC: LAB.S 08:44 | PROVIDERS: ATTEND Internal Medicine | DX: I48.91 Unspecified atrial fibrillation (principal); R03.0 Elevated blood-pressure reading, without diagnosis of hypertension; G47.62 Sleep related leg cramps | CPT/HCPCS: 85610 ==

== ENCOUNTER 2019-09-15 07:55 | Outpatient (CLI) | payer MEDICARE, OTHER | END 2019-09-15 07:56 | disposition home or self-care (01) | LOC: LAB.S 07:55 | PROVIDERS: ATTEND Internal Medicine Cardiovascular Disease | DX: I50.9 Heart failure, unspecified (principal) | CPT/HCPCS: 36415; 80048; 83880 ==

== ENCOUNTER 2019-09-21 08:52 | Outpatient (CLI) | payer MEDICARE, OTHER | END 2019-09-21 08:53 | disposition home or self-care (01) | LOC: LAB.S 08:52 | PROVIDERS: ATTEND Internal Medicine | DX: I48.91 Unspecified atrial fibrillation (principal); R03.0 Elevated blood-pressure reading, without diagnosis of hypertension; G47.62 Sleep related leg cramps | CPT/HCPCS: 85610 ==

== ENCOUNTER 2019-09-28 08:14 | Outpatient (CLI) | payer MEDICARE, OTHER | END 2019-09-28 08:15 | disposition home or self-care (01) | LOC: LAB.S 08:14 | PROVIDERS: ATTEND Internal Medicine | DX: I48.91 Unspecified atrial fibrillation (principal); R03.0 Elevated blood-pressure reading, without diagnosis of hypertension; G47.62 Sleep related leg cramps | CPT/HCPCS: 85610 ==

== ENCOUNTER 2019-10-05 08:30 | Outpatient (CLI) | payer MEDICARE, OTHER | END 2019-10-05 08:31 | disposition home or self-care (01) | LOC: LAB 08:30 | PROVIDERS: ATTEND Internal Medicine | DX: I48.91 Unspecified atrial fibrillation (principal); R03.0 Elevated blood-pressure reading, without diagnosis of hypertension; G47.62 Sleep related leg cramps | CPT/HCPCS: 85610 ==

== ENCOUNTER 2019-10-12 08:15 | Outpatient (CLI) | payer MEDICARE, OTHER | END 2019-10-12 08:16 | disposition home or self-care (01) | LOC: LAB 08:15 | PROVIDERS: ATTEND Internal Medicine | DX: I48.91 Unspecified atrial fibrillation (principal); R03.0 Elevated blood-pressure reading, without diagnosis of hypertension; G47.62 Sleep related leg cramps | CPT/HCPCS: 85610 ==

== ENCOUNTER 2019-10-26 08:53 | Outpatient (CLI) | payer MEDICARE, OTHER | END 2019-10-26 08:54 | disposition home or self-care (01) | LOC: LAB 08:53 | PROVIDERS: ATTEND Internal Medicine | DX: I48.91 Unspecified atrial fibrillation (principal); R03.0 Elevated blood-pressure reading, without diagnosis of hypertension; G47.62 Sleep related leg cramps | CPT/HCPCS: 85610 ==

== ENCOUNTER 2019-11-25 09:03 | Outpatient (CLI) | payer MEDICARE, OTHER | END 2019-11-25 09:04 | disposition home or self-care (01) | LOC: LAB 09:03 | PROVIDERS: ATTEND Internal Medicine | DX: I48.91 Unspecified atrial fibrillation (principal); R03.0 Elevated blood-pressure reading, without diagnosis of hypertension; G47.62 Sleep related leg cramps | CPT/HCPCS: 85610 ==

== ENCOUNTER 2020-02-29 08:35 | Outpatient (CLI) | payer MEDICARE, OTHER ==
[2020-02-29 16:07] LABS: BASOPHILS % (AUTO) 0.6 %; EOSINOPHILS # (AUTO) 0.1 10^3/uL (0.0-0.7); HGB - HEMOGLOBIN 12.2 g/dL (12.0-16.0); LYMPHOCYTES # (AUTO) 1.6 10^3/uL (1.5-3.5); MEAN CORPUSCULAR HEMOGLOBIN 29.2 pg (27.0-31.0); MEAN CORPUSCULAR HGB CONC 31.8 g/dL (32.0-36.0); MEAN CORPUSCULAR VOLUME 91.9 fL (81.0-99.0); MEAN PLATELET VOLUME 11.5 fL (7.9-10.8); MONOCYTES # (AUTO) 0.5 10^3/uL (0.0-1.0); MONOCYTES % (AUTO) 9.7 %; NEUTROPHILS # (AUTO) 2.7 10^3/uL (1.5-6.6); NEUTROPHILS % (AUTO) 54.5 %; PLT - PLATELET COUNT 197 10^3/uL (130-450); RED BLOOD COUNT 4.18 10^6/uL (4.20-5.40); RED CELL DISTRIBUTION WIDTH 16.2 % (12.0-15.0)
[2020-02-29 16:47] LABS: BUN - BLOOD UREA NITROGEN 23 mg/dL (6-20); CALCIUM 8.9 mg/dL (8.5-10.3); CARBON DIOXIDE - CO2 29 mmol/L (21-32); CHLORIDE 105 mmol/L (101-111); CHOL/HDL RATIO 2.2 (<4.4); CHOLESTEROL 106 mg/dL; CREATININE 0.9 mg/dL (0.4-1.0); GLUCOSE 112 mg/dL (70-100); HDL CHOLESTEROL 49 mg/dL; LDL CHOLESTEROL,CALCULATED 45 mg/dL; LDL/HDL RATIO 0.9 (<4.4); SODIUM 139 mmol/L (135-145); VLDL CHOLESTEROL 12 mg/dL
== END 2020-02-29 08:36 | disposition home or self-care (01) ==
LOC: LAB.S 08:35
PROVIDERS: ATTEND Internal Medicine
DX: I35.0 Nonrheumatic aortic (valve) stenosis (principal); I48.91 Unspecified atrial fibrillation; M25.511 Pain in right shoulder; I27.20 Pulmonary hypertension, unspecified; L98.9 Disorder of the skin and subcutaneous tissue, unspecified; I63.9 Cerebral infarction, unspecified; I50.9 Heart failure, unspecified
CPT/HCPCS: 36415; 80048; 80061; 83721; 83880; 85025; 85610

== ENCOUNTER 2020-03-08 08:19 | Outpatient (CLI) | payer MEDICARE, OTHER | END 2020-03-08 08:20 | disposition home or self-care (01) | LOC: LAB.S 08:19 | PROVIDERS: ATTEND Ophthalmology | DX: Z79.01 Long term (current) use of anticoagulants (principal); Z79.4 Long term (current) use of insulin; L20.89 Other atopic dermatitis | CPT/HCPCS: 85610 ==

== ENCOUNTER 2020-03-15 10:45 | Outpatient (CLI) | payer MEDICARE, OTHER | END 2020-03-15 10:46 | disposition home or self-care (01) | LOC: LAB 10:45 | PROVIDERS: ATTEND Ophthalmology | DX: Z79.01 Long term (current) use of anticoagulants (principal) | CPT/HCPCS: 85610 ==

== ENCOUNTER 2020-05-02 08:49 | Outpatient (CLI) | payer MEDICARE, OTHER | END 2020-05-02 08:50 | disposition home or self-care (01) | LOC: LAB.S 08:49 | PROVIDERS: ATTEND Internal Medicine | DX: I48.91 Unspecified atrial fibrillation (principal); R03.0 Elevated blood-pressure reading, without diagnosis of hypertension; G47.62 Sleep related leg cramps | CPT/HCPCS: 36415; 85610 ==

== ENCOUNTER 2020-06-13 07:53 | Outpatient (CLI) | payer MEDICARE, OTHER | END 2020-06-13 07:54 | disposition home or self-care (01) | LOC: LAB.S 07:53 | PROVIDERS: ATTEND Internal Medicine | DX: I48.91 Unspecified atrial fibrillation (principal); R03.0 Elevated blood-pressure reading, without diagnosis of hypertension; G47.62 Sleep related leg cramps | CPT/HCPCS: 85610 ==

== ENCOUNTER 2020-08-08 08:19 | Outpatient (CLI) | payer MEDICARE, OTHER | END 2020-08-08 08:20 | disposition home or self-care (01) | LOC: LAB.S 08:19 | PROVIDERS: ATTEND Internal Medicine | DX: I48.91 Unspecified atrial fibrillation (principal); R03.0 Elevated blood-pressure reading, without diagnosis of hypertension; G47.62 Sleep related leg cramps | CPT/HCPCS: 85610 ==

== ENCOUNTER 2020-09-29 08:06 | Outpatient (CLI) | payer MEDICARE, OTHER | END 2020-09-29 08:07 | disposition home or self-care (01) | LOC: LAB.S 08:06 | PROVIDERS: ATTEND Internal Medicine | DX: I48.91 Unspecified atrial fibrillation (principal); R03.0 Elevated blood-pressure reading, without diagnosis of hypertension; G47.62 Sleep related leg cramps | CPT/HCPCS: 85610 ==

== ENCOUNTER 2020-12-01 08:04 | Outpatient (CLI) | payer MEDICARE, OTHER | END 2020-12-01 08:05 | disposition home or self-care (01) | LOC: LAB.S 08:04 | PROVIDERS: ATTEND Internal Medicine | DX: I48.91 Unspecified atrial fibrillation (principal); R03.0 Elevated blood-pressure reading, without diagnosis of hypertension; G47.62 Sleep related leg cramps | CPT/HCPCS: 36416; 85610 ==

== ENCOUNTER 2021-01-03 10:14 | Outpatient (CLI) | payer MEDICARE, OTHER | END 2021-01-03 10:15 | disposition home or self-care (01) | LOC: COV 10:14 | PROVIDERS: ATTEND Specialist | DX: Z01.812 Encounter for preprocedural laboratory examination (principal); Z20.822 Contact with and (suspected) exposure to COVID-19 ==

== ENCOUNTER 2021-01-06 09:06 | Outpatient (CLI) | payer MEDICARE, OTHER | END 2021-01-06 23:59 | disposition home or self-care (01) | LOC: LAB.S 09:06 | PROVIDERS: ATTEND Emergency Medicine | DX: Z79.01 Long term (current) use of anticoagulants (principal) | CPT/HCPCS: 36415; 36416; 85610 ==

== ENCOUNTER 2021-01-16 08:17 | Outpatient (CLI) | payer MEDICARE, OTHER | END 2021-01-16 08:18 | disposition home or self-care (01) | LOC: LAB.S 08:17 | PROVIDERS: ATTEND Internal Medicine | DX: I48.91 Unspecified atrial fibrillation (principal); R03.0 Elevated blood-pressure reading, without diagnosis of hypertension; G47.62 Sleep related leg cramps | CPT/HCPCS: 36416; 85610 ==

== ENCOUNTER 2021-03-23 09:14 | Outpatient (CLI) | payer MEDICARE, OTHER ==
[2021-03-23 14:33] LABS: BASOPHILS % (AUTO) 0.3 %; EOSINOPHILS # (AUTO) 0.1 10^3/uL (0.0-0.7); HCT - HEMATOCRIT 40.3 % (37.0-47.0); HGB - HEMOGLOBIN 12.5 g/dL (12.0-16.0); LYMPHOCYTES # (AUTO) 1.4 10^3/uL (1.5-3.5); LYMPHOCYTES % (AUTO) 22.5 %; MEAN CORPUSCULAR HEMOGLOBIN 30.3 pg (27.0-31.0); MEAN CORPUSCULAR VOLUME 97.8 fL (81.0-99.0); MEAN PLATELET VOLUME 11.6 fL (7.9-10.8); MONOCYTES # (AUTO) 0.5 10^3/uL (0.0-1.0); MONOCYTES % (AUTO) 7.8 %; NEUTROPHILS # (AUTO) 4.1 10^3/uL (1.5-6.6); NEUTROPHILS % (AUTO) 67.1 %; PLT - PLATELET COUNT 185 10^3/uL (130-450); RED BLOOD COUNT 4.12 10^6/uL (4.20-5.40); RED CELL DISTRIBUTION WIDTH 14.2 % (12.0-15.0); WHITE BLOOD COUNT 6.1 x10^3/uL (4.8-10.8)
[2021-03-23 14:40] LABS: INR 1.8 (0.8-1.2); PT - PROTHROMBIN TIME 20.1 secs (9.9-12.6)
[2021-03-23 14:47] LABS: PARTIAL THROMBOPLASTIN TIME 37.7 secs (24.9-33.3)
[2021-03-23 15:07] LABS: ALBUMIN 3.8 g/dL (3.2-5.5); ALBUMIN/GLOBULIN RATIO 1.2 (1.0-2.2); ALKALINE PHOSPHATASE 103 IU/L (42-121); ALT ALANINE AMINOTRANSFERASE 72 IU/L (10-60); AST ASPARTATE AMINOTRANSFERASE 78 IU/L (10-42); BILIRUBIN,TOTAL 1.6 mg/dL (0.2-1.0); BUN - BLOOD UREA NITROGEN 19 mg/dL (6-20); CARBON DIOXIDE - CO2 31 mmol/L (21-32); CHLORIDE 101 mmol/L (101-111); CHOL/HDL RATIO 2.2 (<4.4); CHOLESTEROL 98 mg/dL; GFR - MDRD 52 (>89); GLUCOSE 152 mg/dL (70-100); HDL CHOLESTEROL 45 mg/dL; LDL CHOLESTEROL,CALCULATED 40 mg/dL; LDL/HDL RATIO 0.9 (<4.4); POTASSIUM 4.2 mmol/L (3.5-5.0); SODIUM 139 mmol/L (135-145); TRIGLYCERIDES 66 mg/dL; VLDL CHOLESTEROL 13 mg/dL
== END 2021-03-23 09:15 | disposition home or self-care (01) ==
LOC: LAB.S 09:14
PROVIDERS: ATTEND Internal Medicine
DX: I48.91 Unspecified atrial fibrillation (principal); I27.20 Pulmonary hypertension, unspecified; I51.3 Intracardiac thrombosis, not elsewhere classified
CPT/HCPCS: 36415; 80053; 80061; 83721; 85025; 85610; 85730

== ENCOUNTER 2021-04-20 08:10 | Outpatient (CLI) | payer MEDICARE, OTHER ==
[2021-04-20 15:24] LABS: BASOPHILS % (AUTO) 0.6 %; EOSINOPHILS # (AUTO) 0.1 10^3/uL (0.0-0.7); EOSINOPHILS % (AUTO) 1.6 %; HCT - HEMATOCRIT 36.5 % (37.0-47.0); HGB - HEMOGLOBIN 11.4 g/dL (12.0-16.0); LYMPHOCYTES # (AUTO) 1.8 10^3/uL (1.5-3.5); LYMPHOCYTES % (AUTO) 35.4 %; MEAN CORPUSCULAR HEMOGLOBIN 30.4 pg (27.0-31.0); MEAN CORPUSCULAR HGB CONC 31.2 g/dL (32.0-36.0); MEAN CORPUSCULAR VOLUME 97.3 fL (81.0-99.0); MEAN PLATELET VOLUME 11.9 fL (7.9-10.8); MONOCYTES # (AUTO) 0.4 10^3/uL (0.0-1.0); MONOCYTES % (AUTO) 8.1 %; NEUTROPHILS # (AUTO) 2.7 10^3/uL (1.5-6.6); NEUTROPHILS % (AUTO) 54.1 %; PLT - PLATELET COUNT 165 10^3/uL (130-450); RED BLOOD COUNT 3.75 10^6/uL (4.20-5.40); RED CELL DISTRIBUTION WIDTH 14.3 % (12.0-15.0); WHITE BLOOD COUNT 5.1 x10^3/uL (4.8-10.8)
[2021-04-20 15:55] LABS: ALBUMIN 3.9 g/dL (3.2-5.5); ALBUMIN/GLOBULIN RATIO 1.3 (1.0-2.2); BILIRUBIN,TOTAL 1.4 mg/dL (0.2-1.0); CALCIUM 9.1 mg/dL (8.5-10.3); CREATININE 1.2 mg/dL (0.4-1.0); POTASSIUM 4.3 mmol/L (3.5-5.0); TOTAL PROTEIN 6.8 g/dL (6.7-8.2)
[2021-04-20 16:04] LABS: PARTIAL THROMBOPLASTIN TIME 34.3 secs (24.9-33.3)
[2021-04-20 16:11] LABS: INR 1.4 (0.8-1.2); PT - PROTHROMBIN TIME 15.9 secs (9.9-12.6)
[2021-04-20 16:51] LABS: CREATININE,URINE 156.1 mg/dL; MICROALBUM/CREATININE RATIO,UR 657.3 ug/mg (<30.0); MICROALBUMIN,URINE 102.6 mg/dL (0-300.0)
[2021-04-21 15:11] LABS: HEPATITIS C ANTIBODY NON-REACTIVE (NON-REACTIVE)
== END 2021-04-20 08:11 | disposition home or self-care (01) ==
LOC: LAB.S 08:10
PROVIDERS: ATTEND Internal Medicine
DX: I35.0 Nonrheumatic aortic (valve) stenosis (principal); R94.4 Abnormal results of kidney function studies; R74.8 Abnormal levels of other serum enzymes; I51.3 Intracardiac thrombosis, not elsewhere classified
CPT/HCPCS: 36415; 80053; 82043; 82570; 83880; 85025; 85610; 85730; 86803

== ENCOUNTER 2021-05-12 08:32 | Outpatient (CLI) | payer MEDICARE, OTHER ==
[2021-05-12 15:25] LABS: BASOPHILS % (AUTO) 0.5 %; EOSINOPHILS # (AUTO) 0.1 10^3/uL (0.0-0.7); EOSINOPHILS % (AUTO) 2.5 %; HCT - HEMATOCRIT 35.7 % (37.0-47.0); HGB - HEMOGLOBIN 11.1 g/dL (12.0-16.0); LYMPHOCYTES # (AUTO) 1.5 10^3/uL (1.5-3.5); LYMPHOCYTES % (AUTO) 25.9 %; MEAN CORPUSCULAR HEMOGLOBIN 29.8 pg (27.0-31.0); MEAN CORPUSCULAR HGB CONC 31.1 g/dL (32.0-36.0); MEAN PLATELET VOLUME 12.4 fL (7.9-10.8); MONOCYTES # (AUTO) 0.6 10^3/uL (0.0-1.0); MONOCYTES % (AUTO) 9.9 %; NEUTROPHILS # (AUTO) 3.5 10^3/uL (1.5-6.6); NEUTROPHILS % (AUTO) 60.8 %; PLT - PLATELET COUNT 159 10^3/uL (130-450); RED BLOOD COUNT 3.72 10^6/uL (4.20-5.40); RED CELL DISTRIBUTION WIDTH 14.3 % (12.0-15.0); WHITE BLOOD COUNT 5.7 x10^3/uL (4.8-10.8)
[2021-05-12 15:30] LABS: INR 1.4 (0.8-1.2); PT - PROTHROMBIN TIME 15.8 secs (9.9-12.6)
[2021-05-12 15:44] LABS: ALBUMIN 3.6 g/dL (3.2-5.5); ALBUMIN/GLOBULIN RATIO 1.2 (1.0-2.2); BILIRUBIN,TOTAL 1.1 mg/dL (0.2-1.0); CREATININE 1.2 mg/dL (0.4-1.0); POTASSIUM 4.3 mmol/L (3.5-5.0); TOTAL PROTEIN 6.6 g/dL (6.7-8.2)
== END 2021-05-12 08:33 | disposition home or self-care (01) ==
LOC: LAB.S 08:32
PROVIDERS: ATTEND Internal Medicine
DX: I35.0 Nonrheumatic aortic (valve) stenosis (principal); I48.91 Unspecified atrial fibrillation; R94.4 Abnormal results of kidney function studies; R74.8 Abnormal levels of other serum enzymes
CPT/HCPCS: 36415; 80053; 85025; 85610; 85730

== ENCOUNTER 2021-05-19 07:52 | Outpatient (CLI) | payer MEDICARE, OTHER | END 2021-05-19 07:53 | disposition home or self-care (01) | LOC: LAB.S 07:52 | PROVIDERS: ATTEND Internal Medicine | DX: I35.0 Nonrheumatic aortic (valve) stenosis (principal); I48.91 Unspecified atrial fibrillation; R94.4 Abnormal results of kidney function studies; R74.8 Abnormal levels of other serum enzymes | CPT/HCPCS: 36415; 85730 ==

== ENCOUNTER 2021-05-26 14:21 | Outpatient (CLI) | payer MEDICARE, OTHER ==
[2021-05-26 20:04] LABS: CALCIUM 9.2 mg/dL (8.5-10.3); CREATININE 1.1 mg/dL (0.4-1.0); POTASSIUM 4.3 mmol/L (3.5-5.0)
== END 2021-05-26 14:22 | disposition home or self-care (01) ==
LOC: LAB.S 14:21
PROVIDERS: ATTEND Internal Medicine
DX: I35.0 Nonrheumatic aortic (valve) stenosis (principal); I48.91 Unspecified atrial fibrillation; R94.4 Abnormal results of kidney function studies; I10 Essential (primary) hypertension
CPT/HCPCS: 36415; 80048

== ENCOUNTER 2021-09-05 08:19 | Outpatient (CLI) | payer MEDICARE, OTHER ==
--- NOTE | 2021-09-05 10:33 | DEXA Report ---
PROCEDURE: Dexa Spine and/or Hip INDICATIONS: NORMAL MENOPAUSE TECHNIQUE: Dual energy x-ray absorptiometry (DXA) was performed on a imeem System. Regions measur ed are the AP Spine, femoral neck, and if needed forearm. COMPARISON: None. FINDINGS: Lumbar Spine: Bone Mineral Density 1.359 g/cm/cm,T score 1.5, normal bone density Left Hip: Bone Mineral Density 0.961 g/cm/cm,T score -0.4, normal bone density Left Femoral Neck: Bone Mineral Density 0.860 g/cm/cm, T score -1.3, osteopenia (T score greater or equal to -1.0: NORMAL) (T score from -1.1 to -2.4: OSTEOPENIA) (T score less than or equal to -2.5 to: OSTEOPOROSIS) Impression: Mild osteopenia. Patient is at increased risk for fracture. Patients with diagnosis of osteoporosis or osteopenia should have regular bone mineral density assess ment. For those eligible for Medicare, routine testing is allowed once every 2 years. Testing frequ ency can be increased for patients who have rapidly progressing disease or for those who are receivin g medical therapy to restore bone mass. Reviewed by: Dewayne Hogan MD on 09/05/2021 10:32 AM PST Approved by: Dewayne Hogan MD on 09/05/2021 10:32 AM PST Station ID: [id number]
== END 2021-09-05 08:20 | disposition home or self-care (01) ==
LOC: DI 08:19
PROVIDERS: ATTEND Internal Medicine
DX: Z78.0 Asymptomatic menopausal state (principal); M85.88 Other specified disorders of bone density and structure, other site

== ENCOUNTER 2021-09-22 07:16 | Outpatient (CLI) | payer MEDICARE, OTHER ==
[2021-09-22 14:36] LABS: BASOPHILS % (AUTO) 0.4 %; EOSINOPHILS # (AUTO) 0.1 10^3/uL (0.0-0.7); EOSINOPHILS % (AUTO) 2.5 %; HCT - HEMATOCRIT 38.2 % (37.0-47.0); HGB - HEMOGLOBIN 12.2 g/dL (12.0-16.0); LYMPHOCYTES # (AUTO) 1.9 10^3/uL (1.5-3.5); LYMPHOCYTES % (AUTO) 34.2 %; MEAN CORPUSCULAR HEMOGLOBIN 30.7 pg (27.0-31.0); MEAN CORPUSCULAR HGB CONC 31.9 g/dL (32.0-36.0); MEAN CORPUSCULAR VOLUME 96.2 fL (81.0-99.0); MEAN PLATELET VOLUME 11.7 fL (7.9-10.8); MONOCYTES # (AUTO) 0.5 10^3/uL (0.0-1.0); MONOCYTES % (AUTO) 9.1 %; NEUTROPHILS % (AUTO) 53.4 %; PLT - PLATELET COUNT 202 10^3/uL (130-450); RED BLOOD COUNT 3.97 10^6/uL (4.20-5.40); RED CELL DISTRIBUTION WIDTH 13.9 % (12.0-15.0); WHITE BLOOD COUNT 5.6 x10^3/uL (4.8-10.8)
[2021-09-22 14:42] LABS: ALBUMIN 3.7 g/dL (3.2-5.5); ALBUMIN/GLOBULIN RATIO 1.4 (1.0-2.2); BILIRUBIN,TOTAL 1.2 mg/dL (0.2-1.0); CREATININE 1.2 mg/dL (0.4-1.0); POTASSIUM 4.6 mmol/L (3.5-5.0); TOTAL PROTEIN 6.3 g/dL (6.7-8.2)
== END 2021-09-22 07:17 | disposition home or self-care (01) ==
LOC: LAB.S 07:16
PROVIDERS: ATTEND Internal Medicine
DX: I35.0 Nonrheumatic aortic (valve) stenosis (principal); I48.91 Unspecified atrial fibrillation; R94.4 Abnormal results of kidney function studies; R74.8 Abnormal levels of other serum enzymes
CPT/HCPCS: 36415; 80053; 85025